=== PATIENT | female | born 1940 ===

== ENCOUNTER 2017-07-02 15:12 | Emergency (ER) | payer MEDICARE, OTHER ==
[~2017-07-02] VITALS: Ht 157.5 cm; Wt 51.3 kg
[~2017-07-02 15:12] MED LIST: ALBU90OI6 INH; ALPR.5 PO; CENTRUM SILVER1 EAC3 PO; CYAN1000I IM; DEXL60CA3 PO; DOCU100 PO; ERGO50000 PO; FURO20 PO; HYDACE5 PO; IPRA.06NI INH; MAGOXI400 PO; MORP15ER PO; MORP30 PO; MORP30ER PO; POTCHL20ER PO; PSEU120ER PO; VITAMIN D50000 UNIT PO; WARF6 PO; ZOMETA; ZOMETA 4 M4 MG/100 M IV
[2017-07-02] MEDS ORDERED: Macrobid 100 M100 MG PO (15:54)
[2017-07-02 15:58] LABS: Source, Urine Clean Catch
[2017-07-02 16:01] LABS: Bilirubin, Urine Neg (Neg); Blood, Urine 5+ (Neg); Glucose Qualitative, Urine Neg (Neg); Ketones, Urine 1+ (Neg); Leukocyte Esterase, Urine 3+ (Neg); Nitrite, Urine Pos (Neg); Protein, Urine 2+ (Neg); Specific Gravity, Urine 1.025 (1.003-1.022); Urobilinogen, Urine 1+ (Normal)
[2017-07-02] MEDS ORDERED: POTCHL20ER (16:14)
[2017-07-02] MEDS ORDERED: GABA300 (16:14)
[2017-07-02] MEDS ORDERED: [UNRECOGNIZED DRUG - SUPPLY] (16:14)
[2017-07-02] MEDS ORDERED: Prednisolone Ace5 ML (16:14)
[2017-07-02] MEDS ORDERED: Sulfamethoxazo1 EAC4 (16:14)
[2017-07-02] MEDS ORDERED: CEFD300 (16:14)
[2017-07-02] MEDS ORDERED: ONDA8 (16:14)
[2017-07-02] MEDS ORDERED: TRIM100 (16:14)
[2017-07-02 16:37] LABS: Appearance, Urine Hazy (Clear); Color, Urine Yellow (P-Yellow)
[2017-07-02 16:38] LABS: White Blood Cells, Urine TNTC /hpf (0-5)
[2017-07-02 16:39] LABS: Bacteria Many /hpf; Squamous Epithelial Cells Few /hpf (Few)
== END 2017-07-02 16:19 | disposition home or self-care (01) ==
LOC: ER 15:12
PROVIDERS: Internal Medicine
DX: R31.9 Hematuria, unspecified (principal); R79.1 Abnormal coagulation profile; Z79.01 Long term (current) use of anticoagulants; Z79.899 Other long term (current) drug therapy
CPT/HCPCS: 81001; 87077; 87086; 87186; 99283

== ENCOUNTER 2018-05-29 08:05 | Day surgery (SDC) | payer MEDICARE, OTHER ==
[~2018-05-29 08:05] MED LIST changes: +CEFD300; +GABA300; +Macrobid 100 M100 MG PO; +ONDA8; +POTCHL20ER; +Prednisolone Ace5 ML; +Sulfamethoxazo1 EAC4; +TRIM100; +[UNRECOGNIZED DRUG - SUPPLY]
== END 2018-05-29 08:14 | disposition home or self-care (01) ==
LOC: ATC 08:05
DX: I74.3 Embolism and thrombosis of arteries of the lower extremities (principal); Z79.01 Long term (current) use of anticoagulants; Z79.899 Other long term (current) drug therapy; Z86.73 Personal history of transient ischemic attack (TIA), and cerebral infarction without residual deficits; J45.909 Unspecified asthma, uncomplicated
CPT/HCPCS: 96372; J1650

== ENCOUNTER 2018-05-31 00:06 | Day surgery (SDC) | payer MEDICARE, OTHER | END 2018-05-31 16:37 | disposition home or self-care (01) | LOC: ATC 00:06 | DX: I74.3 Embolism and thrombosis of arteries of the lower extremities (principal) | CPT/HCPCS: 96372; J1650 ==

== ENCOUNTER 2018-06-01 00:05 | Day surgery (SDC) | payer MEDICARE, OTHER | END 2018-06-01 16:40 | disposition home or self-care (01) | LOC: ATC 00:05 | DX: I74.3 Embolism and thrombosis of arteries of the lower extremities (principal); Z79.01 Long term (current) use of anticoagulants; Z79.899 Other long term (current) drug therapy; Z86.73 Personal history of transient ischemic attack (TIA), and cerebral infarction without residual deficits | CPT/HCPCS: 96372; J1650 ==

== ENCOUNTER 2018-06-02 00:14 | Day surgery (SDC) | payer MEDICARE, OTHER ==
--- NOTE | 2018-06-02 11:41 | NUR ---
PT CAME IN THIS MORNING FOR LOVENOX INJECTION AND FINGERSTICK INR. PT INFORMS THIS RN THAT SHE IS NOT ON HER COUMADIN AT THIS TIME, STATING THAT SHE WAS TOLD TO TAKE THESE INJECTIONS UNTIL SHE "GETS UP TO HER LEVEL" ACCORDING TO PT PT STATES THAT HER PROCEDURE IS OVER, THIS RN INFORMED HER THAT ORDER STATES THAT SHE SHOULD OF STARTED COUMADIN ON 05/31/18. PT WAS INFORMED THIS AND ENCOURAGED TO CALL YOUR OFFICE FOR FURTHER INSTRUCTIONS SINCE FINGERSTICK INR IS 0.9 TODAY. THIS RN WILL FAX THIS N/N AND LAB RESULT TO DR REMY TODAY
== END 2018-06-02 16:49 | disposition home or self-care (01) ==
LOC: ATC 00:14
DX: I74.3 Embolism and thrombosis of arteries of the lower extremities (principal); J45.909 Unspecified asthma, uncomplicated
CPT/HCPCS: 36416; 85610; 96372; J1650

== ENCOUNTER 2018-06-03 00:16 | Day surgery (SDC) | payer MEDICARE, OTHER ==
--- NOTE | 2018-06-03 18:00 | NUR ---
AM: COMPUTERS DOWN SEE PAPER CHARTING FOR LOVENOX GIVEN AND VITALS
== END 2018-06-03 16:08 | disposition home or self-care (01) ==
LOC: ATC 00:16
DX: I74.3 Embolism and thrombosis of arteries of the lower extremities (principal)
CPT/HCPCS: 96372; J1650

== ENCOUNTER 2018-06-04 08:06 | Day surgery (SDC) | payer MEDICARE, OTHER ==
[2018-06-05] MEDS ORDERED: WARF5 PO (08:14)
[2018-06-05] MEDS ORDERED: ARED 2 BOTHEYES (16:35)
[2018-06-05] MEDS ORDERED: ONDA8 PO (16:36)
[2018-06-05] MEDS ORDERED: Hair, Skin & N1 EACH PO (16:36)
[2018-06-05] MEDS ORDERED: LIDO700A20 TOP (16:36)
[2018-06-05] MEDS ORDERED: DEXL60CA3 (16:37)
[2018-06-05] MEDS ORDERED: Atrovent Inha12.9 GM (16:38)
[2018-06-05] MEDS ORDERED: ERGO400 (16:39)
[2018-06-05] MEDS ORDERED: VIT B12 (16:42)
[2018-06-05] MEDS ORDERED: Reclast 55 MG/100 M IV (16:42)
[2018-06-05] MEDS ORDERED: MORP30 PO (16:43)
[2018-06-05] MEDS ORDERED: FURO20 PO (16:48)
[2018-06-05] MEDS ORDERED: ALPR.5 PO (16:49)
[2018-06-05] MEDS ORDERED: SUDAFED PO (16:50)
[2018-06-05] MEDS ORDERED: COLE5P PO (16:50)
[2018-06-05] MEDS ORDERED: Bentyl10 MG (16:51)
[2018-06-05] MEDS ORDERED: LOPE2C (16:51)
== END 2018-06-04 16:21 | disposition home or self-care (01) ==
LOC: ATC 08:06
DX: I74.3 Embolism and thrombosis of arteries of the lower extremities (principal); Z79.01 Long term (current) use of anticoagulants
CPT/HCPCS: 36416; 85610; 96372; J1650

== ENCOUNTER 2018-06-05 07:57 | Day surgery (SDC) | payer MEDICARE, OTHER ==
[2018-06-05] MEDS ORDERED: WARF5 PO (08:14)
[2018-06-05] MEDS ORDERED: ARED 2 BOTHEYES (16:35)
[2018-06-05] MEDS ORDERED: Hair, Skin & N1 EACH PO (16:36)
[2018-06-05] MEDS ORDERED: ONDA8 PO (16:36)
[2018-06-05] MEDS ORDERED: LIDO700A20 TOP (16:36)
[2018-06-05] MEDS ORDERED: DEXL60CA3 (16:37)
[2018-06-05] MEDS ORDERED: Atrovent Inha12.9 GM (16:38)
[2018-06-05] MEDS ORDERED: ERGO400 (16:39)
[2018-06-05] MEDS ORDERED: Reclast 55 MG/100 M IV (16:42)
[2018-06-05] MEDS ORDERED: VIT B12 (16:42)
[2018-06-05] MEDS ORDERED: MORP30 PO (16:43)
[2018-06-05] MEDS ORDERED: FURO20 PO (16:48)
[2018-06-05] MEDS ORDERED: ALPR.5 PO (16:49)
[2018-06-05] MEDS ORDERED: COLE5P PO (16:50)
[2018-06-05] MEDS ORDERED: SUDAFED PO (16:50)
[2018-06-05] MEDS ORDERED: LOPE2C (16:51)
[2018-06-05] MEDS ORDERED: Bentyl10 MG (16:51)
== END 2018-06-05 16:14 | disposition home or self-care (01) ==
LOC: ATC 07:57
DX: I74.3 Embolism and thrombosis of arteries of the lower extremities (principal); Z79.01 Long term (current) use of anticoagulants
CPT/HCPCS: 96372; J1650

== ENCOUNTER 2018-06-06 00:13 | Day surgery (SDC) | payer MEDICARE, OTHER ==
[~2018-06-06 00:13] MED LIST changes: +ARED 2 BOTHEYES; +Atrovent Inha12.9 GM; +Bentyl10 MG; +COLE5P PO; +DEXL60CA3; +ERGO400; +Hair, Skin & N1 EACH PO; +LIDO700A20 TOP; +LOPE2C; +ONDA8 PO; +Reclast 55 MG/100 M IV; +SUDAFED PO; +VIT B12; +WARF5 PO
--- NOTE | 2018-06-06 09:26 | NUR ---
FINGERSTICK INR = 1.4 TODAY.
--- NOTE | 2018-06-06 17:02 | NUR ---
INR RESULTS FROM TODAY FAXED TO DR. REMY'S OFFICE.
[2018-06-07] MEDS ORDERED: WARF6 PO (08:19)
[2018-06-07] MEDS ORDERED: ENOX60I SC (08:19)
== END 2018-06-06 22:37 | disposition home or self-care (01) ==
LOC: ATC 00:13
DX: I74.3 Embolism and thrombosis of arteries of the lower extremities (principal); J45.909 Unspecified asthma, uncomplicated
CPT/HCPCS: 36416; 85610; 96372; J1650

== ENCOUNTER 2018-06-07 00:19 | Day surgery (SDC) | payer MEDICARE, OTHER ==
[2018-06-07] MEDS ORDERED: WARF6 PO (08:19)
[2018-06-07] MEDS ORDERED: ENOX60I SC (08:19)
== END 2018-06-07 22:36 | disposition home or self-care (01) ==
LOC: ATC 00:19
DX: I74.3 Embolism and thrombosis of arteries of the lower extremities (principal)
CPT/HCPCS: 36416; 85610; 96372; J1650

== ENCOUNTER 2018-06-08 00:14 | Day surgery (SDC) | payer MEDICARE, OTHER ==
[~2018-06-08 00:14] MED LIST changes: +ENOX60I SC
--- NOTE | 2018-06-08 08:21 | NUR ---
INR 1.9.
== END 2018-06-08 16:10 | disposition home or self-care (01) ==
LOC: ATC 00:14
DX: I74.3 Embolism and thrombosis of arteries of the lower extremities (principal)
CPT/HCPCS: 36416; 85610; 96372; J1650

== ENCOUNTER 2018-06-09 07:29 | Day surgery (SDC) | payer MEDICARE, OTHER ==
--- NOTE | 2018-06-09 08:49 | NUR ---
INR 2.0 NO MEDICATION GIVEN PER DR ORDERS. WILL FAX RESULT OF PT NOTE TO DR REMY. PT CONTINUING ON COUMADIN, VERBALIZES UNDERSTANDING OF MEDICATION.
== END 2018-06-09 08:35 | disposition home or self-care (01) ==
LOC: ATC 07:29
DX: I74.3 Embolism and thrombosis of arteries of the lower extremities (principal); Z79.899 Other long term (current) drug therapy; Z79.01 Long term (current) use of anticoagulants
CPT/HCPCS: 36416; 85610; 99211; J1650

== ENCOUNTER 2018-10-03 12:47 | Inpatient (IN) | payer MEDICARE, OTHER ==
[~2018-10-03] VITALS: Ht 157.5 cm; Wt 49.6 kg
[~2018-10-03 12:47] MED LIST changes: -ARED 2 BOTHEYES; -DEXL60CA3; -ERGO400; -POTCHL20ER; -Reclast 55 MG/100 M IV; -SUDAFED PO; -VIT B12; +VITAMIN D250000 UNIT PO
[2018-10-03 13:15] LABS: Source, Urine Catheter
[2018-10-03 13:24] LABS: BASOPHILS ABSOLUTE AUTO 0.01 K/mm3 (0.00-0.23); BASOPHILS PERCENT AUTO 0 % (0-2); EOSINOPHILS PERCENT AUTO 0 % (0-6); Hematocrit 40.2 % (33.0-51.0); Hemoglobin 12.7 g/dL (11.5-16.0); IMMATURE GRAN ABSOLUTE AUTO 0.01 K/mm3 (0.00-0.10); IMMATURE GRAN PERCENT AUTO 0 % (0-1); LYMPHOCYTES ABSOLUTE AUTO 0.43 K/mm3 (0.84-5.20); LYMPHOCYTES PERCENT AUTO 8 % (21-46); MONOCYTES ABSOLUTE AUTO 0.26 K/mm3 (0.16-1.47); MONOCYTES PERCENT AUTO 5 % (4-13); Mean Corpuscular HGB 28.2 pg (26.0-34.0); Mean Corpuscular HGB Conc 31.6 g/dL (31.5-36.5); Mean Corpuscular Volume 89 fL (80-100); Mean Platelet Volume 10.5 fL (9.1-12.4); NEUTROPHILS ABSOLUTE AUTO 4.91 K/mm3 (1.96-9.15); NEUTROPHILS PERCENT AUTO 87 % (41-73); Platelet Count 150 K/mm3 (150-400); RDW Coefficient Variation 14.7 % (11.7-14.2); RDW Standard Deviation 48.3 fL (35.1-46.3); White Blood Cell Count 5.62 K/mm3 (4.00-11.30)
[2018-10-03 13:41] LABS: International Normalized Ratio 1.75; Prothrombin Time Results 17.6 Sec (9.7-11.5)
[2018-10-03 13:53] LABS: Bilirubin, Urine Neg (Neg); Blood, Urine 1+ (Neg); Glucose Qualitative, Urine Neg (Neg); Ketones, Urine 1+ (Neg); Leukocyte Esterase, Urine Neg (Neg); Nitrite, Urine Pos (Neg); Protein, Urine Neg (Neg); Specific Gravity, Urine 1.015 (1.003-1.022); Urobilinogen, Urine NORM (Normal)
[2018-10-03 14:05] LABS: Appearance, Urine Hazy (Clear); Color, Urine Pale Yellow (P-Yellow)
[2018-10-03 14:07] LABS: Red Blood Cells, Urine 0-2 /hpf (0-2); Squamous Epithelial Cells Not Seen /hpf (Few); White Blood Cells, Urine 0-2 /hpf (0-5)
[2018-10-03 14:08] LABS: Bacteria Rare /hpf
[2018-10-03 14:17] LABS: Alanine Aminotransfer (ALT/SGP 20 U/L (12-78); Albumin, Blood 3.2 g/dL (3.4-5.0); Alk Phos 90 U/L (50-136); Anion Gap 7 mmol/L (6-16); Aspartate Aminotrans (AST/SGOT 29 U/L (12-37); Bilirubin, Total 0.5 mg/dL (0.1-1.0); Blood Urea Nitrogen 11 mg/dL (8-24); Bun/Creatinine Ratio 18.3 (12.0-20.0); CO2, Blood 29 mmol/L (21-32); Calcium, Blood 8.1 mg/dL (8.5-10.1); Chloride, Blood 103 mmol/L (98-108); Globulin, Blood 3.3 g/dL (2.2-4.0); Glomerular Filtration Rate >60 (60-); Glucose, Blood 125 mg/dL (70-99); Potassium, Blood 3.3 mmol/L (3.5-5.5); Sodium, Blood 139 mmol/L (136-145); Total Protein, Blood 6.5 g/dL (6.4-8.2)
[2018-10-03] MEDS ORDERED: Pseudoephedrine30 MG PO (15:20)
[2018-10-03] MEDS ORDERED: PRESERVISION A1 EACH PO (16:06)
[2018-10-03] MEDS ORDERED: ZOLEDRONIC4 MG/1001 PO (16:08)
[2018-10-03 21:21] LABS: Adenovirus Not Detected (NOT DETECT); Bordetella pertussis Not Detected (NOT DETECT); Chlamydophila pneumoniae Not Detected (NOT DETECT); Coronavirus 229E Not Detected (NOT DETECT); Coronavirus HKU1 Not Detected (NOT DETECT); Coronavirus NL63 Not Detected (NOT DETECT); Coronavirus OC43 Not Detected (NOT DETECT); Human Metapneumovirus Not Detected (NOT DETECT); Human Rhinovirus/Enterovirus Not Detected (NOT DETECT); Influenza A Not Detected (NOT DETECT); Influenza A/2009-H1 Not Detected (NOT DETECT); Influenza A/H1 Not Detected (NOT DETECT); Influenza A/H3 Not Detected (NOT DETECT); Influenza B Not Detected (NOT DETECT); Mycoplasma pneumoniae Not Detected (NOT DETECT); Parainfluenza Virus 1 Not Detected (NOT DETECT); Parainfluenza Virus 2 Not Detected (NOT DETECT); Parainfluenza Virus 3 Not Detected (NOT DETECT); Parainfluenza Virus 4 Not Detected (NOT DETECT); Respiratory Syncytial Virus Not Detected (NOT DETECT)
[2018-10-04 00:40] LABS: Adenovirus F 40/41 Not Detected (NOT DETECT); Astrovirus Not Detected (NOT DETECT); Campylobacter Sp Not Detected (NOT DETECT); Cryptosporidium Not Detected (NOT DETECT); Cyclospora Cayetanensis Not Detected (NOT DETECT); E. Coli O157 Not Detected (NOT DETECT); Entamoeba Histolytica Not Detected (NOT DETECT); Enteroaggregative E. coli-EAEC Not Detected (NOT DETECT); Enteropathogenic E. coli-EPEC Not Detected (NOT DETECT); Enterotoxigenic E. coli-ETEC Not Detected (NOT DETECT); Giardia Lamblia Not Detected (NOT DETECT); Norovirus GI/GII Not Detected (NOT DETECT); Plesiomonas Shigelloides Not Detected (NOT DETECT); Rotavirus A Not Detected (NOT DETECT); Salmonella Sp Not Detected (NOT DETECT); Sapovirus Not Detected (NOT DETECT); Shiga Toxin-prod E. coli-STEC Not Detected (NOT DETECT); Shigella/Enteroin E. coli-EIEC Not Detected (NOT DETECT); Vibrio Cholerae Not Detected (NOT DETECT); Vibrio Sp Not Detected (NOT DETECT); Yersinia Enterocolitica Not Detected (NOT DETECT)
[2018-10-04 05:08] LABS: BASOPHILS ABSOLUTE AUTO 0.01 K/mm3 (0.00-0.23); BASOPHILS PERCENT AUTO 0 % (0-2); EOSINOPHILS PERCENT AUTO 0 % (0-6); Hematocrit 35.1 % (33.0-51.0); Hemoglobin 10.9 g/dL (11.5-16.0); IMMATURE GRAN ABSOLUTE AUTO 0.06 K/mm3 (0.00-0.10); IMMATURE GRAN PERCENT AUTO 1 % (0-1); LYMPHOCYTES ABSOLUTE AUTO 0.93 K/mm3 (0.84-5.20); LYMPHOCYTES PERCENT AUTO 10 % (21-46); MONOCYTES ABSOLUTE AUTO 0.77 K/mm3 (0.16-1.47); MONOCYTES PERCENT AUTO 9 % (4-13); Mean Corpuscular HGB 27.9 pg (26.0-34.0); Mean Corpuscular HGB Conc 31.1 g/dL (31.5-36.5); Mean Corpuscular Volume 90 fL (80-100); Mean Platelet Volume 11.4 fL (9.1-12.4); NEUTROPHILS ABSOLUTE AUTO 7.18 K/mm3 (1.96-9.15); NEUTROPHILS PERCENT AUTO 80 % (41-73); Platelet Count 124 K/mm3 (150-400); RDW Coefficient Variation 15.2 % (11.7-14.2); RDW Standard Deviation 49.6 fL (35.1-46.3); White Blood Cell Count 8.95 K/mm3 (4.00-11.30)
[2018-10-04 05:20] LABS: Prothrombin Time Results 19.9 Sec (9.7-11.5)
[2018-10-04 05:44] LABS: Alanine Aminotransfer (ALT/SGP 16 U/L (12-78); Albumin, Blood 2.3 g/dL (3.4-5.0); Albumin/Globulin Ratio 0.8 (0.8-1.8); Alk Phos 59 U/L (50-136); Anion Gap 4 mmol/L (6-16); Aspartate Aminotrans (AST/SGOT 27 U/L (12-37); Bilirubin, Total 0.6 mg/dL (0.1-1.0); Blood Urea Nitrogen 10 mg/dL (8-24); Bun/Creatinine Ratio 19.8 (12.0-20.0); CO2, Blood 29 mmol/L (21-32); Calcium, Blood 7.8 mg/dL (8.5-10.1); Chloride, Blood 107 mmol/L (98-108); Glomerular Filtration Rate >60 (60-); Glucose, Blood 113 mg/dL (70-99); Potassium, Blood 3.7 mmol/L (3.5-5.5); Sodium, Blood 140 mmol/L (136-145); Total Protein, Blood 5.3 g/dL (6.4-8.2)
--- NOTE | 2018-10-04 17:49 | NUR ---
PATIENT IS ALERT AND ORIENTED AND PLEASANT WITH STAFF AND COOPERATIVE WITH ALL CARES. SHE CONTNUES TO HAVE PAIN TO HER HIP AND IS MEDICATED PER EMAR. CDIFF RULED OUT AND NO DIARRHEA THIS SHIFT. NO ACUTE CHANGES THIS SHIFT.
[2018-10-05 04:44] LABS: BASOPHILS PERCENT AUTO 0 % (0-2); EOSINOPHILS ABSOLUTE AUTO 0.02 K/mm3 (0.00-0.68); EOSINOPHILS PERCENT AUTO 0 % (0-6); Hematocrit 31.6 % (33.0-51.0); IMMATURE GRAN ABSOLUTE AUTO 0.03 K/mm3 (0.00-0.10); IMMATURE GRAN PERCENT AUTO 1 % (0-1); LYMPHOCYTES ABSOLUTE AUTO 0.77 K/mm3 (0.84-5.20); LYMPHOCYTES PERCENT AUTO 15 % (21-46); MONOCYTES PERCENT AUTO 8 % (4-13); Mean Corpuscular HGB 28.1 pg (26.0-34.0); Mean Corpuscular HGB Conc 31.6 g/dL (31.5-36.5); Mean Corpuscular Volume 89 fL (80-100); Mean Platelet Volume 10.9 fL (9.1-12.4); NEUTROPHILS ABSOLUTE AUTO 3.84 K/mm3 (1.96-9.15); NEUTROPHILS PERCENT AUTO 76 % (41-73); Platelet Count 117 K/mm3 (150-400); RDW Coefficient Variation 14.9 % (11.7-14.2); RDW Standard Deviation 48.7 fL (35.1-46.3); Red Blood Cell Count 3.56 M/mm3 (3.80-5.20); White Blood Cell Count 5.06 K/mm3 (4.00-11.30)
[2018-10-05 04:56] LABS: International Normalized Ratio 2.18; Prothrombin Time Results 21.5 Sec (9.7-11.5)
[2018-10-05 04:58] LABS: Anion Gap 4 mmol/L (6-16); Blood Urea Nitrogen 7 mg/dL (8-24); Bun/Creatinine Ratio 14.2 (12.0-20.0); CO2, Blood 29 mmol/L (21-32); Calcium, Blood 7.8 mg/dL (8.5-10.1); Chloride, Blood 109 mmol/L (98-108); Creatinine, Blood 0.49 mg/dL (0.40-1.00); Glomerular Filtration Rate >60 (60-); Glucose, Blood 91 mg/dL (70-99); Potassium, Blood 3.2 mmol/L (3.5-5.5); Sodium, Blood 142 mmol/L (136-145)
--- NOTE | 2018-10-05 05:20 | NUR ---
HUMAN RESOURCE PROFESSIONAL SUMMARY NO ACUTE CHANGES THIS SHIFT. PT AAOX4 AND PLEASANT. TREATED FOR CHRONIC HIP PAIN WITH SCHEDULED PO MORPHINE. PT DENIES SOB, N/V. ON LR'S AT 100 ML/HR. VITALS STABLE. PT EAGER TO GO HOME. WILL CONTINUE TO MONITOR.
[2018-10-05] MEDS ORDERED: ACET325 PO (11:46)
[2018-10-05] MEDS ORDERED: ALBU90OI INH (11:47)
[2018-10-05] MEDS ORDERED: AZIT500 PO (11:48)
[2018-10-05] MEDS ORDERED: CEFP200 PO (11:48)
[2018-10-05] MEDS ORDERED: Florastor250 MG PO (11:49)
[2018-10-05] MEDS ORDERED: ONDA4ODT MM (11:49)
--- NOTE | 2018-10-05 12:38 | NUR ---
1200 PATIENT DISCHARGED TO HOME. IV'S REMOVED, NO SS OF INFECTION NOTED. MEDS FAXED INTO PHARMACY OF CHOICE AND NURSE WENT OVER DISCHARGE INSTRUCTIONS WITH PATIENT AND DAUGHTER. NEW MEDS WERE DISCUSSED AND PATIENT EDUCATED REGARDING THEM. PATIENT AND DAUGHTER GATHERED BELONGINGS. PATIENT WHEELED DOWN TO CAR AND TAKEN HOME BY DAUGHTER.
--- NOTE | 2018-10-05 16:18 | NUR ---
Pt. is doing much bettwer encouraged pt. and offered prayrs and spiritual support.
== END 2018-10-05 12:27 | disposition home or self-care (01) | DRG 871 ==
LOC: ER 12:47 → MEDS 15:30 → ENPENDDIS 10-05 11:10 → MEDS 10-05 12:27
PROVIDERS: Emergency Medicine; ADMIT Family Medicine
DX: A41.51 Sepsis due to Escherichia coli [E. coli] (principal); J18.9 Pneumonia, unspecified organism; R65.21 Severe sepsis with septic shock; N39.0 Urinary tract infection, site not specified; E87.6 Hypokalemia; M19.90 Unspecified osteoarthritis, unspecified site; M81.0 Age-related osteoporosis without current pathological fracture; R19.7 Diarrhea, unspecified; Z88.6 Allergy status to analgesic agent; Z88.8 Allergy status to other drugs, medicaments and biological substances; Z86.718 Personal history of other venous thrombosis and embolism; Z79.01 Long term (current) use of anticoagulants; Z85.42 Personal history of malignant neoplasm of other parts of uterus; Z85.830 Personal history of malignant neoplasm of bone; Z79.899 Other long term (current) drug therapy
CPT/HCPCS: 36415; 36416; 71045; 71046; 80048; 80053; 81001; 83605; 84145; 85025; 85610; 85730; 87040; 87077; 87086; 87186; 87449; 87486; 87507; 87581; 87633; 87798; 93005; 93010; 94640; 94760; 94762; 96361; 96365; 96375; 97161; 97165; 97530; 97535; 99285-25; A9270; J0456; J0696; J2405; J7050; J7120; P9612

== ENCOUNTER 2018-10-23 08:49 | Day surgery (SDC) | payer MEDICARE, OTHER ==
[~2018-10-23 08:49] MED LIST changes: +ACET325 PO; +ALBU90OI INH; +AZIT500 PO; +CEFP200 PO; +Florastor250 MG PO; +ONDA4ODT MM; +PRESERVISION A1 EACH PO; +Pseudoephedrine30 MG PO; +ZOLEDRONIC4 MG/1001 PO
--- NOTE | 2018-10-23 09:15 | NUR ---
NO INR ORDERED. PT OFF COUMDAIN SINCE 10/20/18, PLANNED PROCEDURE ON 10/28/18. BRIDGING WITH LOVENOX BID PER MD ORDER. PT TO RETURN TONIGHT AT 1730.
== END 2018-10-23 17:35 | disposition home or self-care (01) ==
LOC: ATC 08:49
DX: J90 Pleural effusion, not elsewhere classified (principal); I74.3 Embolism and thrombosis of arteries of the lower extremities; J45.909 Unspecified asthma, uncomplicated; K21.9 Gastro-esophageal reflux disease without esophagitis; F41.1 Generalized anxiety disorder; E55.9 Vitamin D deficiency, unspecified; Z88.8 Allergy status to other drugs, medicaments and biological substances; Z88.6 Allergy status to analgesic agent; Z88.1 Allergy status to other antibiotic agents; Z79.899 Other long term (current) drug therapy; Z79.01 Long term (current) use of anticoagulants
CPT/HCPCS: 96372; J1650

== ENCOUNTER 2018-10-24 07:34 | Day surgery (SDC) | payer MEDICARE, OTHER | END 2018-10-24 16:20 | disposition home or self-care (01) | LOC: ATC 07:34 | DX: J90 Pleural effusion, not elsewhere classified (principal); I74.3 Embolism and thrombosis of arteries of the lower extremities; K21.9 Gastro-esophageal reflux disease without esophagitis; F41.1 Generalized anxiety disorder; E55.9 Vitamin D deficiency, unspecified; Z88.8 Allergy status to other drugs, medicaments and biological substances; Z88.6 Allergy status to analgesic agent; Z88.1 Allergy status to other antibiotic agents; Z79.899 Other long term (current) drug therapy; Z79.01 Long term (current) use of anticoagulants; Z86.73 Personal history of transient ischemic attack (TIA), and cerebral infarction without residual deficits | CPT/HCPCS: 96372; J1650 ==

== ENCOUNTER 2018-10-25 00:09 | Day surgery (SDC) | payer MEDICARE, OTHER ==
[2018-10-26] MEDS ORDERED: ENOX40I SC (07:58)
== END 2018-10-25 16:34 | disposition home or self-care (01) ==
LOC: ATC 00:09
DX: J90 Pleural effusion, not elsewhere classified (principal); I74.3 Embolism and thrombosis of arteries of the lower extremities; K21.9 Gastro-esophageal reflux disease without esophagitis; F41.1 Generalized anxiety disorder; J45.909 Unspecified asthma, uncomplicated; Z88.6 Allergy status to analgesic agent; Z88.1 Allergy status to other antibiotic agents; Z88.8 Allergy status to other drugs, medicaments and biological substances; Z79.899 Other long term (current) drug therapy; Z79.01 Long term (current) use of anticoagulants; Z86.718 Personal history of other venous thrombosis and embolism; Z86.73 Personal history of transient ischemic attack (TIA), and cerebral infarction without residual deficits
CPT/HCPCS: 96372; J1650

== ENCOUNTER 2018-10-26 00:03 | Day surgery (SDC) | payer MEDICARE, OTHER ==
[2018-10-26] MEDS ORDERED: ENOX40I SC (07:58)
== END 2018-10-26 16:40 | disposition home or self-care (01) ==
LOC: ATC 00:03
DX: J90 Pleural effusion, not elsewhere classified (principal); I74.3 Embolism and thrombosis of arteries of the lower extremities; J45.909 Unspecified asthma, uncomplicated; K21.9 Gastro-esophageal reflux disease without esophagitis; F41.1 Generalized anxiety disorder; Z88.8 Allergy status to other drugs, medicaments and biological substances; Z88.6 Allergy status to analgesic agent; Z88.1 Allergy status to other antibiotic agents; Z79.899 Other long term (current) drug therapy; Z79.01 Long term (current) use of anticoagulants
CPT/HCPCS: 96372; J1650

== ENCOUNTER 2018-10-27 07:32 | Day surgery (SDC) | payer MEDICARE, OTHER ==
[~2018-10-27 07:32] MED LIST changes: +ENOX40I SC
== END 2018-10-27 08:11 | disposition home or self-care (01) ==
LOC: ATC 07:32
DX: J91.8 Pleural effusion in other conditions classified elsewhere (principal); J90 Pleural effusion, not elsewhere classified; C79.51 Secondary malignant neoplasm of bone; J45.909 Unspecified asthma, uncomplicated; I34.0 Nonrheumatic mitral (valve) insufficiency; E55.9 Vitamin D deficiency, unspecified; E53.8 Deficiency of other specified B group vitamins; D72.819 Decreased white blood cell count, unspecified; K21.9 Gastro-esophageal reflux disease without esophagitis; F41.9 Anxiety disorder, unspecified; K64.8 Other hemorrhoids; M16.12 Unilateral primary osteoarthritis, left hip; M75.81 Other shoulder lesions, right shoulder; M70.62 Trochanteric bursitis, left hip; Z79.01 Long term (current) use of anticoagulants; Z86.010 Personal history of colon polyps; Z85.42 Personal history of malignant neoplasm of other parts of uterus; Z85.72 Personal history of non-Hodgkin lymphomas; Z79.899 Other long term (current) drug therapy; Z87.440 Personal history of urinary (tract) infections; Z86.718 Personal history of other venous thrombosis and embolism; Z79.891 Long term (current) use of opiate analgesic; Z86.73 Personal history of transient ischemic attack (TIA), and cerebral infarction without residual deficits
CPT/HCPCS: 96372; J1650

== ENCOUNTER 2018-10-28 13:25 | Day surgery (SDC) | payer MEDICARE, OTHER | END 2018-10-29 01:58 | disposition home or self-care (01) | LOC: US 13:25 | DX: J90 Pleural effusion, not elsewhere classified (principal); K76.89 Other specified diseases of liver; D73.89 Other diseases of spleen; I74.3 Embolism and thrombosis of arteries of the lower extremities | CPT/HCPCS: 36415; 71260; 74177; 76604; 82947; 83615; 84155; 85025; 85610; Q9967 ==

== ENCOUNTER 2018-10-29 00:27 | Day surgery (SDC) | payer MEDICARE, OTHER | END 2018-10-29 16:09 | disposition home or self-care (01) | LOC: ATC 00:27 | DX: I74.3 Embolism and thrombosis of arteries of the lower extremities (principal); J90 Pleural effusion, not elsewhere classified; J45.909 Unspecified asthma, uncomplicated; Z88.6 Allergy status to analgesic agent; Z88.1 Allergy status to other antibiotic agents; Z88.8 Allergy status to other drugs, medicaments and biological substances; Z79.899 Other long term (current) drug therapy; Z79.01 Long term (current) use of anticoagulants; Z86.73 Personal history of transient ischemic attack (TIA), and cerebral infarction without residual deficits | CPT/HCPCS: 96372; J1650 ==

== ENCOUNTER 2018-10-30 07:42 | Day surgery (SDC) | payer MEDICARE, OTHER ==
--- NOTE | 2018-10-30 08:37 | NUR ---
FINGERSTICK INR TODAY: RESULTS ARE 1.0
== END 2018-10-30 16:32 | disposition home or self-care (01) ==
LOC: ATC 07:42
DX: J90 Pleural effusion, not elsewhere classified (principal); I74.3 Embolism and thrombosis of arteries of the lower extremities; J45.909 Unspecified asthma, uncomplicated; K21.9 Gastro-esophageal reflux disease without esophagitis; F41.1 Generalized anxiety disorder; Z88.8 Allergy status to other drugs, medicaments and biological substances; Z88.6 Allergy status to analgesic agent; Z88.1 Allergy status to other antibiotic agents; Z79.899 Other long term (current) drug therapy; Z79.01 Long term (current) use of anticoagulants; Z86.73 Personal history of transient ischemic attack (TIA), and cerebral infarction without residual deficits
CPT/HCPCS: 36416; 85610; 96372; J1650

== ENCOUNTER 2018-10-31 07:24 | Day surgery (SDC) | payer MEDICARE, OTHER ==
--- NOTE | 2018-10-31 08:19 | NUR ---
UNABLE TO DO INR THIS AM D/T MALFUNCTION OF MACHINE.
== END 2018-10-31 16:43 | disposition home or self-care (01) ==
LOC: ATC 07:24
DX: J90 Pleural effusion, not elsewhere classified (principal); I74.3 Embolism and thrombosis of arteries of the lower extremities; J45.909 Unspecified asthma, uncomplicated; K21.9 Gastro-esophageal reflux disease without esophagitis; F41.1 Generalized anxiety disorder; Z88.8 Allergy status to other drugs, medicaments and biological substances; Z88.6 Allergy status to analgesic agent; Z88.1 Allergy status to other antibiotic agents; Z79.899 Other long term (current) drug therapy; Z79.01 Long term (current) use of anticoagulants
CPT/HCPCS: 96372; J1650

== ENCOUNTER 2018-11-01 00:36 | Day surgery (SDC) | payer MEDICARE, OTHER | END 2018-11-01 16:38 | disposition home or self-care (01) | LOC: ATC 00:36 | DX: J90 Pleural effusion, not elsewhere classified (principal); I74.3 Embolism and thrombosis of arteries of the lower extremities; J45.909 Unspecified asthma, uncomplicated; K21.9 Gastro-esophageal reflux disease without esophagitis; Z79.01 Long term (current) use of anticoagulants; Z79.899 Other long term (current) drug therapy; Z88.8 Allergy status to other drugs, medicaments and biological substances; Z88.6 Allergy status to analgesic agent; Z88.1 Allergy status to other antibiotic agents; Z86.73 Personal history of transient ischemic attack (TIA), and cerebral infarction without residual deficits | CPT/HCPCS: 36416; 85610; 96372; J1650 ==

== ENCOUNTER 2018-11-02 00:09 | Day surgery (SDC) | payer MEDICARE, OTHER ==
[~2018-11-02] VITALS: Ht 157.5 cm; Wt 49.0 kg
--- NOTE | 2018-11-02 08:02 | NUR ---
INR 1.3.
== END 2018-11-02 16:37 | disposition home or self-care (01) ==
LOC: ATC 00:09
DX: J90 Pleural effusion, not elsewhere classified (principal); I74.3 Embolism and thrombosis of arteries of the lower extremities; J45.909 Unspecified asthma, uncomplicated; K21.9 Gastro-esophageal reflux disease without esophagitis; E55.9 Vitamin D deficiency, unspecified; Z79.01 Long term (current) use of anticoagulants; Z79.899 Other long term (current) drug therapy; Z88.8 Allergy status to other drugs, medicaments and biological substances; Z88.6 Allergy status to analgesic agent; Z88.1 Allergy status to other antibiotic agents
CPT/HCPCS: 36416; 85610; 96372; J1650

== ENCOUNTER 2018-11-03 00:17 | Day surgery (SDC) | payer MEDICARE, OTHER | END 2018-11-03 16:45 | disposition home or self-care (01) | LOC: ATC 00:17 | DX: J91.8 Pleural effusion in other conditions classified elsewhere (principal); J90 Pleural effusion, not elsewhere classified; I74.3 Embolism and thrombosis of arteries of the lower extremities; J45.909 Unspecified asthma, uncomplicated; I34.0 Nonrheumatic mitral (valve) insufficiency; E53.8 Deficiency of other specified B group vitamins; D72.819 Decreased white blood cell count, unspecified; C82.90 Follicular lymphoma, unspecified, unspecified site; K52.9 Noninfective gastroenteritis and colitis, unspecified; K21.9 Gastro-esophageal reflux disease without esophagitis; F41.9 Anxiety disorder, unspecified; K64.8 Other hemorrhoids; M81.0 Age-related osteoporosis without current pathological fracture; Z86.718 Personal history of other venous thrombosis and embolism; Z85.42 Personal history of malignant neoplasm of other parts of uterus; M70.62 Trochanteric bursitis, left hip; Z87.11 Personal history of peptic ulcer disease; Z79.01 Long term (current) use of anticoagulants; Z86.010 Personal history of colon polyps; Z86.73 Personal history of transient ischemic attack (TIA), and cerebral infarction without residual deficits | CPT/HCPCS: 36416; 85610; 96372; J1650 ==

== ENCOUNTER 2018-11-04 00:41 | Day surgery (SDC) | payer MEDICARE, OTHER | END 2018-11-04 17:35 | disposition home or self-care (01) | LOC: ATC 00:41 | DX: J90 Pleural effusion, not elsewhere classified (principal); I74.3 Embolism and thrombosis of arteries of the lower extremities; J45.909 Unspecified asthma, uncomplicated; K21.9 Gastro-esophageal reflux disease without esophagitis; F41.1 Generalized anxiety disorder; Z88.8 Allergy status to other drugs, medicaments and biological substances; Z86.718 Personal history of other venous thrombosis and embolism; Z86.73 Personal history of transient ischemic attack (TIA), and cerebral infarction without residual deficits; Z88.6 Allergy status to analgesic agent; Z88.1 Allergy status to other antibiotic agents; Z79.899 Other long term (current) drug therapy; Z79.01 Long term (current) use of anticoagulants | CPT/HCPCS: 36416; 85610; 96372; J1650 ==

== ENCOUNTER 2018-11-05 08:00 | Day surgery (SDC) | payer MEDICARE, OTHER | END 2018-11-05 16:32 | disposition home or self-care (01) | LOC: ATC 08:00 | DX: J90 Pleural effusion, not elsewhere classified (principal); K31.89 Other diseases of stomach and duodenum; I74.2 Embolism and thrombosis of arteries of the upper extremities; C79.51 Secondary malignant neoplasm of bone; R91.8 Other nonspecific abnormal finding of lung field; J45.909 Unspecified asthma, uncomplicated; I34.0 Nonrheumatic mitral (valve) insufficiency; G89.3 Neoplasm related pain (acute) (chronic); E53.8 Deficiency of other specified B group vitamins; E55.9 Vitamin D deficiency, unspecified; C82.94 Follicular lymphoma, unspecified, lymph nodes of axilla and upper limb; K21.9 Gastro-esophageal reflux disease without esophagitis; R09.82 Postnasal drip; F41.9 Anxiety disorder, unspecified; K64.8 Other hemorrhoids; M81.0 Age-related osteoporosis without current pathological fracture; M16.12 Unilateral primary osteoarthritis, left hip; M70.62 Trochanteric bursitis, left hip; Z92.3 Personal history of irradiation; Z86.73 Personal history of transient ischemic attack (TIA), and cerebral infarction without residual deficits; Z85.42 Personal history of malignant neoplasm of other parts of uterus; Z79.891 Long term (current) use of opiate analgesic; Z79.01 Long term (current) use of anticoagulants; Z79.899 Other long term (current) drug therapy; Z88.8 Allergy status to other drugs, medicaments and biological substances; Z88.6 Allergy status to analgesic agent; Z88.1 Allergy status to other antibiotic agents | CPT/HCPCS: 96372; J1650 ==

== ENCOUNTER 2018-11-06 08:01 | Day surgery (SDC) | payer MEDICARE, OTHER | END 2018-11-06 16:35 | disposition home or self-care (01) | LOC: ATC 08:01 | DX: J90 Pleural effusion, not elsewhere classified (principal); I74.3 Embolism and thrombosis of arteries of the lower extremities; C79.51 Secondary malignant neoplasm of bone; J45.909 Unspecified asthma, uncomplicated; I34.0 Nonrheumatic mitral (valve) insufficiency; E53.8 Deficiency of other specified B group vitamins; E55.9 Vitamin D deficiency, unspecified; K21.9 Gastro-esophageal reflux disease without esophagitis; M81.0 Age-related osteoporosis without current pathological fracture; Z86.73 Personal history of transient ischemic attack (TIA), and cerebral infarction without residual deficits; Z85.42 Personal history of malignant neoplasm of other parts of uterus; Z79.891 Long term (current) use of opiate analgesic; Z79.01 Long term (current) use of anticoagulants; Z79.899 Other long term (current) drug therapy | CPT/HCPCS: 96372; J1650 ==

== ENCOUNTER 2018-11-07 00:37 | Day surgery (SDC) | payer MEDICARE, OTHER | END 2018-11-07 08:01 | disposition home or self-care (01) | LOC: ATC 00:37 | DX: J90 Pleural effusion, not elsewhere classified (principal); I74.3 Embolism and thrombosis of arteries of the lower extremities; Z85.72 Personal history of non-Hodgkin lymphomas; Z85.42 Personal history of malignant neoplasm of other parts of uterus; Z79.899 Other long term (current) drug therapy; Z79.01 Long term (current) use of anticoagulants; Z88.8 Allergy status to other drugs, medicaments and biological substances; Z88.6 Allergy status to analgesic agent | CPT/HCPCS: 96372; J1650 ==

== ENCOUNTER 2018-11-09 00:04 | Day surgery (SDC) | payer MEDICARE, OTHER | END 2018-11-09 16:40 | disposition home or self-care (01) | LOC: ATC 00:04 | DX: J90 Pleural effusion, not elsewhere classified (principal); I74.3 Embolism and thrombosis of arteries of the lower extremities; C79.51 Secondary malignant neoplasm of bone; J45.909 Unspecified asthma, uncomplicated; E55.9 Vitamin D deficiency, unspecified; D72.819 Decreased white blood cell count, unspecified; K21.9 Gastro-esophageal reflux disease without esophagitis; F41.9 Anxiety disorder, unspecified; Z88.8 Allergy status to other drugs, medicaments and biological substances; Z79.01 Long term (current) use of anticoagulants; Z79.891 Long term (current) use of opiate analgesic; Z85.42 Personal history of malignant neoplasm of other parts of uterus; Z79.899 Other long term (current) drug therapy | CPT/HCPCS: 96372; J1650 ==

== ENCOUNTER 2018-11-10 00:03 | Day surgery (SDC) | payer MEDICARE, OTHER ==
--- NOTE | 2018-11-10 08:11 | NUR ---
FINGERSTICK INR = 1.0 TODAY.
== END 2018-11-10 16:45 | disposition home or self-care (01) ==
LOC: ATC 00:03
DX: J90 Pleural effusion, not elsewhere classified (principal); G89.29 Other chronic pain; M25.552 Pain in left hip; C79.51 Secondary malignant neoplasm of bone; J45.909 Unspecified asthma, uncomplicated; E55.9 Vitamin D deficiency, unspecified; K21.9 Gastro-esophageal reflux disease without esophagitis; F41.9 Anxiety disorder, unspecified; Z79.899 Other long term (current) drug therapy; Z85.42 Personal history of malignant neoplasm of other parts of uterus; Z79.01 Long term (current) use of anticoagulants; Z79.891 Long term (current) use of opiate analgesic; Z88.8 Allergy status to other drugs, medicaments and biological substances
CPT/HCPCS: 36416; 85610; 96372; J1650

== ENCOUNTER 2018-11-11 00:50 | Day surgery (SDC) | payer MEDICARE, OTHER ==
[~2018-11-11 00:50] MED LIST changes: -CEPH250A PO
--- NOTE | 2018-11-11 08:01 | NUR ---
FINGERSTICK INR 1.1 MEDICATION GIVEN PER ORDERS
== END 2018-11-11 23:26 | disposition home or self-care (01) ==
LOC: ATC 00:50
DX: J90 Pleural effusion, not elsewhere classified (principal); I74.3 Embolism and thrombosis of arteries of the lower extremities; C79.51 Secondary malignant neoplasm of bone; Z79.899 Other long term (current) drug therapy; Z85.42 Personal history of malignant neoplasm of other parts of uterus; Z88.8 Allergy status to other drugs, medicaments and biological substances; Z79.01 Long term (current) use of anticoagulants; Z88.6 Allergy status to analgesic agent; I34.0 Nonrheumatic mitral (valve) insufficiency; E53.8 Deficiency of other specified B group vitamins; E55.9 Vitamin D deficiency, unspecified; D72.819 Decreased white blood cell count, unspecified; K21.9 Gastro-esophageal reflux disease without esophagitis; F41.9 Anxiety disorder, unspecified
CPT/HCPCS: 36416; 85610; 96372; J1650

== ENCOUNTER → 2018-11-11 | Outpatient (CLI) | payer MEDICARE, OTHER ==
[~2018-11-11] MED LIST changes: +CEPH250A PO
[2018-11-11 16:53] LABS: Source, Urine Clean Catch
[2018-11-11 17:06] LABS: Blood, Urine 4+ (Neg); Glucose Qualitative, Urine Neg (Neg); Ketones, Urine 3+ (Neg); Leukocyte Esterase, Urine 3+ (Neg); Nitrite, Urine Pos (Neg); Protein, Urine 1+ (Neg); Urobilinogen, Urine 2+ (Normal)
[2018-11-11 17:26] LABS: Bilirubin, Urine 1+ (Neg)
[2018-11-11 17:27] LABS: Appearance, Urine Hazy (Clear); Color, Urine Yellow (P-Yellow)
[2018-11-11 17:35] LABS: White Blood Cells, Urine 25-50 /hpf (0-5)
[2018-11-11 17:36] LABS: Bacteria Many /hpf; Red Blood Cells, Urine 0-2 /hpf (0-2); Squamous Epithelial Cells Few /hpf (Few)
== END | disposition home or self-care (01) ==
LOC: LAB SHORT 16:52 → LAB 16:52
PROVIDERS: Internal Medicine
DX: R30.0 Dysuria (principal); R31.29 Other microscopic hematuria
CPT/HCPCS: 81001; 87077; 87086; 87186

== ENCOUNTER 2018-11-12 07:55 | Day surgery (SDC) | payer MEDICARE, OTHER ==
--- NOTE | 2018-11-12 08:15 | NUR ---
FINGERSTICK INR 1.[address] STOREY CALLED PER ORDER WITH INR RESULTS. PER PT CAN CONTINUE WITH HER 6MG OF COUMADIN TONIGHT CONTINUE WITH LOVENOX ORDERED AND RECHECK INR TOMORROW
== END 2018-11-12 16:30 | disposition home or self-care (01) ==
LOC: ATC 07:55
DX: J90 Pleural effusion, not elsewhere classified (principal); I74.3 Embolism and thrombosis of arteries of the lower extremities
CPT/HCPCS: 36416; 85610; 96372; J1650

== ENCOUNTER 2018-11-13 07:53 | Day surgery (SDC) | payer MEDICARE, OTHER ==
--- NOTE | 2018-11-13 12:12 | NUR ---
1015-CALLED DR STOREY WITH INR RESULTS OF 1.3. ORDERS GIVEN FOR PT TO CONTINUE WITH 6MG COUMADIN, CONTINUE WITH LOVENOX, AND RECHECK INR TOMORROW AND CALL PCP WITH RESULTS
--- NOTE | 2018-11-13 16:22 | NUR ---
PT DECLINES VS THIS EVENING
[2018-11-14] MEDS ORDERED: CEPH250A PO (08:00)
== END 2018-11-13 16:30 | disposition home or self-care (01) ==
LOC: ATC 07:53
DX: J90 Pleural effusion, not elsewhere classified (principal); I74.3 Embolism and thrombosis of arteries of the lower extremities; Z88.6 Allergy status to analgesic agent; Z88.8 Allergy status to other drugs, medicaments and biological substances
CPT/HCPCS: 36416; 85610; 96372; J1650

== ENCOUNTER 2018-11-14 00:07 | Day surgery (SDC) | payer MEDICARE, OTHER ==
[2018-11-14] MEDS ORDERED: CEPH250A PO (08:00)
--- NOTE | 2018-11-14 08:02 | NUR ---
FINGERSTICK INR 1.5 MEDICATION GIVEN PER ORDERS
== END 2018-11-14 16:32 | disposition home or self-care (01) ==
LOC: ATC 00:07
DX: J90 Pleural effusion, not elsewhere classified (principal); I74.3 Embolism and thrombosis of arteries of the lower extremities; Z88.6 Allergy status to analgesic agent; Z88.8 Allergy status to other drugs, medicaments and biological substances
CPT/HCPCS: 85610; 96372; J1650

== ENCOUNTER 2018-11-15 07:11 | Day surgery (SDC) | payer MEDICARE, OTHER ==
[~2018-11-15 07:11] MED LIST changes: +CEPH250A PO
== END 2018-11-15 16:30 | disposition home or self-care (01) ==
LOC: ATC 07:11
DX: J90 Pleural effusion, not elsewhere classified (principal); I74.3 Embolism and thrombosis of arteries of the lower extremities; Z88.1 Allergy status to other antibiotic agents; Z88.6 Allergy status to analgesic agent; Z88.8 Allergy status to other drugs, medicaments and biological substances
CPT/HCPCS: 36416; 85610; 96372; J1650

== ENCOUNTER 2018-11-16 00:07 | Day surgery (SDC) | payer MEDICARE, OTHER | END 2018-11-16 16:56 | disposition home or self-care (01) | LOC: ATC 00:07 | DX: J90 Pleural effusion, not elsewhere classified (principal); I74.3 Embolism and thrombosis of arteries of the lower extremities; M16.12 Unilateral primary osteoarthritis, left hip; Z88.6 Allergy status to analgesic agent; Z88.8 Allergy status to other drugs, medicaments and biological substances; Z86.73 Personal history of transient ischemic attack (TIA), and cerebral infarction without residual deficits; Z79.899 Other long term (current) drug therapy | CPT/HCPCS: 36416; 85610; 96372; J1650 ==

== ENCOUNTER 2018-11-17 00:08 | Day surgery (SDC) | payer MEDICARE, OTHER | END 2018-11-17 16:38 | disposition home or self-care (01) | LOC: ATC 00:08 | DX: J90 Pleural effusion, not elsewhere classified (principal); I74.3 Embolism and thrombosis of arteries of the lower extremities; Z79.01 Long term (current) use of anticoagulants; Z85.42 Personal history of malignant neoplasm of other parts of uterus; C79.51 Secondary malignant neoplasm of bone; J45.909 Unspecified asthma, uncomplicated; I34.0 Nonrheumatic mitral (valve) insufficiency; G89.29 Other chronic pain; M54.5 Low back pain; Z86.718 Personal history of other venous thrombosis and embolism; Z87.11 Personal history of peptic ulcer disease; E53.8 Deficiency of other specified B group vitamins; E55.9 Vitamin D deficiency, unspecified; D72.819 Decreased white blood cell count, unspecified; Z86.73 Personal history of transient ischemic attack (TIA), and cerebral infarction without residual deficits; K52.9 Noninfective gastroenteritis and colitis, unspecified; K21.9 Gastro-esophageal reflux disease without esophagitis; F41.9 Anxiety disorder, unspecified; K64.8 Other hemorrhoids; M81.0 Age-related osteoporosis without current pathological fracture; Z79.899 Other long term (current) drug therapy; Z88.8 Allergy status to other drugs, medicaments and biological substances; Z88.1 Allergy status to other antibiotic agents; Z88.6 Allergy status to analgesic agent; M70.62 Trochanteric bursitis, left hip | CPT/HCPCS: 36416; 85610; 96372; J1650 ==

== ENCOUNTER 2018-11-18 02:19 | Day surgery (SDC) | payer MEDICARE, OTHER ==
--- NOTE | 2018-11-18 08:18 | NUR ---
FINGERSTICK INR 1.4 TODAY. RESULTS FAXED TO DR REMY
== END 2018-11-18 16:44 | disposition home or self-care (01) ==
LOC: ATC 02:19
DX: J90 Pleural effusion, not elsewhere classified (principal); I74.3 Embolism and thrombosis of arteries of the lower extremities; I74.2 Embolism and thrombosis of arteries of the upper extremities; K31.89 Other diseases of stomach and duodenum; J98.4 Other disorders of lung; D73.89 Other diseases of spleen; K76.89 Other specified diseases of liver; J45.909 Unspecified asthma, uncomplicated; K21.9 Gastro-esophageal reflux disease without esophagitis; F41.1 Generalized anxiety disorder; E55.9 Vitamin D deficiency, unspecified; Z88.8 Allergy status to other drugs, medicaments and biological substances; Z88.6 Allergy status to analgesic agent; Z88.1 Allergy status to other antibiotic agents; Z79.899 Other long term (current) drug therapy; Z79.01 Long term (current) use of anticoagulants
CPT/HCPCS: 36416; 85610; 96372; J1650

== ENCOUNTER 2018-11-19 07:59 | Day surgery (SDC) | payer MEDICARE, OTHER ==
--- NOTE | 2018-11-19 09:34 | NUR ---
FINGERSTICK INR = 1.5 TODAY.
--- NOTE | 2018-11-19 16:30 | NUR ---
ABBY IS PLANNING TO TAKE COUMADIN [address] REMY.
== END 2018-11-19 16:24 | disposition home or self-care (01) ==
LOC: ATC 07:59
DX: J90 Pleural effusion, not elsewhere classified (principal); I74.3 Embolism and thrombosis of arteries of the lower extremities; C79.51 Secondary malignant neoplasm of bone; J45.909 Unspecified asthma, uncomplicated; I34.0 Nonrheumatic mitral (valve) insufficiency; E55.9 Vitamin D deficiency, unspecified; E53.8 Deficiency of other specified B group vitamins; D72.819 Decreased white blood cell count, unspecified; K21.9 Gastro-esophageal reflux disease without esophagitis; F41.1 Generalized anxiety disorder; Z79.899 Other long term (current) drug therapy; Z79.01 Long term (current) use of anticoagulants; Z85.42 Personal history of malignant neoplasm of other parts of uterus; Z88.1 Allergy status to other antibiotic agents; Z88.8 Allergy status to other drugs, medicaments and biological substances
CPT/HCPCS: 36416; 85610; 96372; J1650

== ENCOUNTER 2018-11-20 08:01 | Day surgery (SDC) | payer MEDICARE, OTHER ==
--- NOTE | 2018-11-20 10:15 | NUR ---
FINGERSTICK INR IS 1.6 MEDICATION GIVEN PER ORDERS.
== END 2018-11-20 16:35 | disposition home or self-care (01) ==
LOC: ATC 08:01
DX: J90 Pleural effusion, not elsewhere classified (principal); I74.3 Embolism and thrombosis of arteries of the lower extremities; Z88.6 Allergy status to analgesic agent; Z88.1 Allergy status to other antibiotic agents; Z88.8 Allergy status to other drugs, medicaments and biological substances
CPT/HCPCS: 36416; 85610; 96372; J1650

== ENCOUNTER 2018-11-21 00:01 | Day surgery (SDC) | payer MEDICARE, OTHER ==
--- NOTE | 2018-11-21 08:05 | NUR ---
INR ON DEVORA MACHINE IS 1.8
== END 2018-11-21 16:11 | disposition home or self-care (01) ==
LOC: ATC 00:01
DX: J90 Pleural effusion, not elsewhere classified (principal); I74.3 Embolism and thrombosis of arteries of the lower extremities
CPT/HCPCS: 36416; 85610; 96372; J1650

== ENCOUNTER 2018-11-22 00:10 | Day surgery (SDC) | payer MEDICARE, OTHER ==
--- NOTE | 2018-11-22 08:09 | NUR ---
INR ON ATC MACHINE 1.9.
== END 2018-11-22 16:10 | disposition home or self-care (01) ==
LOC: ATC 00:10
DX: J90 Pleural effusion, not elsewhere classified (principal); I74.3 Embolism and thrombosis of arteries of the lower extremities; I74.2 Embolism and thrombosis of arteries of the upper extremities; K31.89 Other diseases of stomach and duodenum; K21.9 Gastro-esophageal reflux disease without esophagitis; F41.1 Generalized anxiety disorder; Z88.8 Allergy status to other drugs, medicaments and biological substances; Z88.6 Allergy status to analgesic agent; Z88.1 Allergy status to other antibiotic agents; Z79.899 Other long term (current) drug therapy; Z79.01 Long term (current) use of anticoagulants
CPT/HCPCS: 36416; 85610; 96372; J1650

== ENCOUNTER 2018-11-23 00:09 | Day surgery (SDC) | payer MEDICARE, OTHER | END 2018-11-23 16:05 | disposition home or self-care (01) | LOC: ATC 00:09 | DX: I74.3 Embolism and thrombosis of arteries of the lower extremities (principal); I74.2 Embolism and thrombosis of arteries of the upper extremities; K31.89 Other diseases of stomach and duodenum; Z88.6 Allergy status to analgesic agent; Z88.8 Allergy status to other drugs, medicaments and biological substances; Z88.1 Allergy status to other antibiotic agents | CPT/HCPCS: 36416; 85610; 96372; J1650 ==

== ENCOUNTER 2018-11-24 | Day surgery (SDC) | payer MEDICARE, OTHER | END 2018-11-24 07:58 | disposition home or self-care (01) | LOC: ATC | DX: J90 Pleural effusion, not elsewhere classified (principal); I74.3 Embolism and thrombosis of arteries of the lower extremities; K21.9 Gastro-esophageal reflux disease without esophagitis; F41.1 Generalized anxiety disorder; Z88.8 Allergy status to other drugs, medicaments and biological substances; Z88.6 Allergy status to analgesic agent; Z88.1 Allergy status to other antibiotic agents; Z79.899 Other long term (current) drug therapy; Z79.01 Long term (current) use of anticoagulants | CPT/HCPCS: 36416; 85610; 99211 ==

== ENCOUNTER 2018-12-10 07:32 | Day surgery (SDC) | payer MEDICARE, OTHER | END 2018-12-10 16:42 | disposition home or self-care (01) | LOC: ATC 07:32 | DX: I74.2 Embolism and thrombosis of arteries of the upper extremities (principal); I74.3 Embolism and thrombosis of arteries of the lower extremities; J90 Pleural effusion, not elsewhere classified; K31.89 Other diseases of stomach and duodenum | CPT/HCPCS: 96372; J1650 ==

== ENCOUNTER 2018-12-11 07:38 | Day surgery (SDC) | payer MEDICARE, OTHER | END 2018-12-11 16:43 | disposition home or self-care (01) | LOC: ATC 07:38 | DX: I74.3 Embolism and thrombosis of arteries of the lower extremities (principal); I74.2 Embolism and thrombosis of arteries of the upper extremities; J90 Pleural effusion, not elsewhere classified; K31.89 Other diseases of stomach and duodenum; Z88.8 Allergy status to other drugs, medicaments and biological substances; Z88.6 Allergy status to analgesic agent | CPT/HCPCS: 96372; J1650 ==

== ENCOUNTER 2018-12-12 00:09 | Day surgery (SDC) | payer MEDICARE, OTHER | END 2018-12-12 16:46 | disposition home or self-care (01) | LOC: ATC 00:09 | DX: I74.2 Embolism and thrombosis of arteries of the upper extremities (principal); I74.3 Embolism and thrombosis of arteries of the lower extremities; K31.89 Other diseases of stomach and duodenum; J90 Pleural effusion, not elsewhere classified; J45.909 Unspecified asthma, uncomplicated; F41.1 Generalized anxiety disorder; Z88.8 Allergy status to other drugs, medicaments and biological substances; Z88.6 Allergy status to analgesic agent; Z88.1 Allergy status to other antibiotic agents; Z79.899 Other long term (current) drug therapy; Z79.01 Long term (current) use of anticoagulants | CPT/HCPCS: 96372; J1650 ==

== ENCOUNTER 2018-12-13 00:08 | Day surgery (SDC) | payer MEDICARE, OTHER | END 2018-12-13 07:54 | disposition home or self-care (01) | LOC: ATC 00:08 | DX: I74.3 Embolism and thrombosis of arteries of the lower extremities (principal) | CPT/HCPCS: 96372; J1650 ==

== ENCOUNTER 2018-12-15 00:23 | Day surgery (SDC) | payer MEDICARE, OTHER | END 2018-12-15 16:36 | disposition home or self-care (01) | LOC: ATC 00:23 | DX: Z09 Encounter for follow-up examination after completed treatment for conditions other than malignant neoplasm (principal); Z86.718 Personal history of other venous thrombosis and embolism; Z79.01 Long term (current) use of anticoagulants; Z79.899 Other long term (current) drug therapy | CPT/HCPCS: 36416; 85610; 96372; J1650 ==

== ENCOUNTER 2018-12-16 01:53 | Day surgery (SDC) | payer MEDICARE, OTHER ==
--- NOTE | 2018-12-16 08:43 | NUR ---
INR 1.1, PT HAD TO BE POKED 7 TIMES TO GET CAPILLARY BLOOD DRAW. PT WITH SMALL NODULE NOTED ON L SIDE OF ABDOMIN. SIZE IS 3.0 CM WIDE AND 1.5 CM TALL. WILL CALL DR REMY WITH AN UP DATE.
== END 2018-12-16 16:10 | disposition home or self-care (01) ==
LOC: ATC 01:53
DX: Z09 Encounter for follow-up examination after completed treatment for conditions other than malignant neoplasm (principal); Z86.718 Personal history of other venous thrombosis and embolism; Z79.01 Long term (current) use of anticoagulants
CPT/HCPCS: 36416; 85610; 96372; J1650

== ENCOUNTER 2018-12-17 07:55 | Day surgery (SDC) | payer MEDICARE, OTHER | END 2018-12-17 16:13 | disposition home or self-care (01) | LOC: ATC 07:55 | DX: Z09 Encounter for follow-up examination after completed treatment for conditions other than malignant neoplasm (principal); Z79.01 Long term (current) use of anticoagulants; Z86.718 Personal history of other venous thrombosis and embolism; Z79.899 Other long term (current) drug therapy | CPT/HCPCS: 36416; 85610; 96372 ==

== ENCOUNTER 2018-12-18 07:58 | Day surgery (SDC) | payer MEDICARE, OTHER ==
[~2018-12-18] VITALS: Wt 49.0 kg
--- NOTE | 2018-12-18 11:14 | NUR ---
SPOKE WITH DR REMY RE PTS LE 1.3. PT TO CONTINUE ON 7.5MG COUMADIN AND RECHECK IN AM.
== END 2018-12-18 16:08 | disposition home or self-care (01) ==
LOC: ATC 07:58
DX: Z09 Encounter for follow-up examination after completed treatment for conditions other than malignant neoplasm (principal); Z86.718 Personal history of other venous thrombosis and embolism; Z79.01 Long term (current) use of anticoagulants
CPT/HCPCS: 36416; 85610; 96372; J1650

== ENCOUNTER 2018-12-19 07:31 | Day surgery (SDC) | payer MEDICARE, OTHER | END 2018-12-19 15:40 | disposition home or self-care (01) | LOC: ATC 07:31 | DX: I74.3 Embolism and thrombosis of arteries of the lower extremities (principal); J90 Pleural effusion, not elsewhere classified; Z88.8 Allergy status to other drugs, medicaments and biological substances; Z88.6 Allergy status to analgesic agent; Z88.1 Allergy status to other antibiotic agents; Z79.899 Other long term (current) drug therapy; Z79.01 Long term (current) use of anticoagulants | CPT/HCPCS: 36416; 85610; 96372; J1650 ==

== ENCOUNTER 2018-12-20 00:04 | Day surgery (SDC) | payer MEDICARE, OTHER | END 2018-12-20 16:05 | disposition home or self-care (01) | LOC: ATC 00:04 | DX: Z09 Encounter for follow-up examination after completed treatment for conditions other than malignant neoplasm (principal); Z86.718 Personal history of other venous thrombosis and embolism; Z79.01 Long term (current) use of anticoagulants | CPT/HCPCS: 85610; 96372; J1650 ==

== ENCOUNTER 2018-12-21 00:04 | Day surgery (SDC) | payer MEDICARE, OTHER | END 2018-12-21 16:13 | disposition home or self-care (01) | LOC: ATC 00:04 | DX: I74.3 Embolism and thrombosis of arteries of the lower extremities (principal); J90 Pleural effusion, not elsewhere classified; Z88.1 Allergy status to other antibiotic agents; Z88.6 Allergy status to analgesic agent; Z88.8 Allergy status to other drugs, medicaments and biological substances | CPT/HCPCS: 36416; 85610; 96372; J1650 ==

== ENCOUNTER 2018-12-22 00:06 | Day surgery (SDC) | payer MEDICARE, OTHER ==
[~2018-12-22] VITALS: Wt 49.0 kg
--- NOTE | 2018-12-22 08:32 | NUR ---
INR 2.1, NO LOVENOX GIVEN. PT DISCHARGED FROM [facility].
== END 2018-12-22 07:48 | disposition home or self-care (01) ==
LOC: ATC 00:06
DX: I74.3 Embolism and thrombosis of arteries of the lower extremities (principal); J90 Pleural effusion, not elsewhere classified; Z88.8 Allergy status to other drugs, medicaments and biological substances; Z88.6 Allergy status to analgesic agent; Z88.1 Allergy status to other antibiotic agents; Z79.899 Other long term (current) drug therapy; Z79.01 Long term (current) use of anticoagulants
CPT/HCPCS: 36416; 85610; 99211; J1650

== ENCOUNTER → 2019-02-21 | Outpatient (CLI) | payer MEDICARE, OTHER | END | disposition home or self-care (01) | LOC: LAB SHORT 03:50 → LAB 03:50 | DX: R19.7 Diarrhea, unspecified (principal); C82.90 Follicular lymphoma, unspecified, unspecified site | CPT/HCPCS: 87493 ==

== ENCOUNTER → 2019-03-18 | Outpatient (CLI) | payer MEDICARE, OTHER | END | disposition home or self-care (01) | LOC: OLS 15:30 → LAB SHORT 15:30 | DX: R19.7 Diarrhea, unspecified (principal) | CPT/HCPCS: 87493 ==

== ENCOUNTER 2019-10-02 00:44 | Day surgery (SDC) | payer MEDICARE, OTHER | END 2019-10-02 23:10 | disposition home or self-care (01) | LOC: WOUND 00:44 | DX: N30.41 Irradiation cystitis with hematuria (principal) | CPT/HCPCS: G0463 ==

== ENCOUNTER 2019-10-09 09:02 | Day surgery (SDC) | payer MEDICARE, OTHER | END 2019-10-09 22:36 | disposition home or self-care (01) | LOC: HBO 09:02 | DX: N30.41 Irradiation cystitis with hematuria (principal) | CPT/HCPCS: G0277 ==

== ENCOUNTER 2019-10-10 12:25 | Day surgery (SDC) | payer MEDICARE, OTHER | END 2019-10-10 22:35 | disposition home or self-care (01) | LOC: HBO 12:25 | DX: N30.41 Irradiation cystitis with hematuria (principal) | CPT/HCPCS: G0277 ==

== ENCOUNTER 2019-10-11 00:57 | Day surgery (SDC) | payer MEDICARE, OTHER | END 2019-10-11 22:56 | disposition home or self-care (01) | LOC: HBO 00:57 | DX: N30.41 Irradiation cystitis with hematuria (principal) | CPT/HCPCS: G0277 ==

== ENCOUNTER 2019-10-12 00:13 | Day surgery (SDC) | payer MEDICARE, OTHER | END 2019-10-12 23:09 | disposition home or self-care (01) | LOC: HBO 00:13 | DX: N30.41 Irradiation cystitis with hematuria (principal) | CPT/HCPCS: G0277 ==

== ENCOUNTER 2019-10-13 01:35 | Day surgery (SDC) | payer MEDICARE, OTHER | END 2019-10-13 22:41 | disposition home or self-care (01) | LOC: HBO 01:35 | DX: N30.41 Irradiation cystitis with hematuria (principal) | CPT/HCPCS: G0277 ==

== ENCOUNTER 2019-10-16 00:15 | Day surgery (SDC) | payer MEDICARE, OTHER | END 2019-10-16 22:37 | disposition home or self-care (01) | LOC: HBO 00:15 | DX: N30.41 Irradiation cystitis with hematuria (principal) | CPT/HCPCS: G0277 ==

== ENCOUNTER 2019-10-17 00:17 | Day surgery (SDC) | payer MEDICARE, OTHER | END 2019-10-17 23:11 | disposition home or self-care (01) | LOC: HBO 00:17 | DX: N30.41 Irradiation cystitis with hematuria (principal) | CPT/HCPCS: G0277 ==

== ENCOUNTER 2019-10-23 00:07 | Day surgery (SDC) | payer MEDICARE, OTHER | END 2019-10-23 22:38 | disposition home or self-care (01) | LOC: HBO 00:07 | DX: N30.41 Irradiation cystitis with hematuria (principal) | CPT/HCPCS: G0277 ==

== ENCOUNTER 2019-10-30 14:00 | Day surgery (SDC) | payer MEDICARE, OTHER | END 2019-11-14 23:13 | disposition home or self-care (01) | LOC: HBO 14:00 | DX: N30.41 Irradiation cystitis with hematuria (principal) | CPT/HCPCS: G0277 ==

== ENCOUNTER 2019-11-20 00:43 | Day surgery (SDC) | payer MEDICARE, OTHER | END 2019-11-20 22:52 | disposition home or self-care (01) | LOC: HBO 00:43 | DX: N30.41 Irradiation cystitis with hematuria (principal) | CPT/HCPCS: G0277 ==

== ENCOUNTER 2019-11-21 00:21 | Day surgery (SDC) | payer MEDICARE, OTHER | END 2019-11-21 22:43 | disposition home or self-care (01) | LOC: HBO 00:21 | DX: N30.41 Irradiation cystitis with hematuria (principal) | CPT/HCPCS: G0277 ==

== ENCOUNTER 2019-12-01 00:26 | Day surgery (SDC) | payer MEDICARE, OTHER | END 2019-12-01 22:47 | disposition home or self-care (01) | LOC: HBO 00:26 | DX: N30.41 Irradiation cystitis with hematuria (principal) | CPT/HCPCS: G0277; G0463 ==

== ENCOUNTER 2019-12-04 00:18 | Day surgery (SDC) | payer MEDICARE, OTHER | END 2019-12-04 22:47 | disposition home or self-care (01) | LOC: HBO 00:18 | DX: N30.41 Irradiation cystitis with hematuria (principal) | CPT/HCPCS: G0277 ==

== ENCOUNTER 2019-12-11 00:20 | Day surgery (SDC) | payer MEDICARE, OTHER | END 2019-12-11 22:57 | disposition home or self-care (01) | LOC: HBO 00:20 | DX: N30.41 Irradiation cystitis with hematuria (principal) | CPT/HCPCS: G0277 ==

== ENCOUNTER 2019-12-12 00:46 | Day surgery (SDC) | payer MEDICARE, OTHER | END 2019-12-12 22:51 | disposition home or self-care (01) | LOC: HBO 00:46 | DX: N30.41 Irradiation cystitis with hematuria (principal) | CPT/HCPCS: G0277 ==

== ENCOUNTER 2019-12-18 00:35 | Day surgery (SDC) | payer MEDICARE, OTHER | END 2019-12-18 22:51 | disposition home or self-care (01) | LOC: WOUND 00:35 | DX: N30.41 Irradiation cystitis with hematuria (principal); J45.909 Unspecified asthma, uncomplicated; M19.90 Unspecified osteoarthritis, unspecified site; Z86.73 Personal history of transient ischemic attack (TIA), and cerebral infarction without residual deficits | CPT/HCPCS: G0463 ==

== ENCOUNTER → 2020-05-16 | Outpatient (CLI) | payer MEDICARE, OTHER ==
[~2020-05-16] MED LIST changes: +BISA10S PR; +DOC250 PO; +ELIQUIS2.5 MG PO; +FAMO20 PO; +FLUC200 PO; +MAALOX PLUS PO; +MELATONIN5 M1 PO; +METO5A PO; +NORTRIPTYLINE H PO; +PRESERVISION A1 EAC1 PO; -PRESERVISION A1 EACH PO; +PSEUDOEPHEDRINE30 M4 PO; +SORBITOL PO; +XANAX0.25 MG PO; +ZOLEDRONIC ACID4 M1 IV; -ZOLEDRONIC4 MG/1001 PO; +[UNRECOGNIZED DRUG - OTHER] PO; +[UNRECOGNIZED DRUG - OTHER] PO
[2020-05-16 16:17] LABS: Source, Urine Clean Catch
[2020-05-16 18:51] LABS: Appearance, Urine Clear (Clear); Bilirubin, Urine Neg (Neg); Blood, Urine Neg (Neg); Color, Urine Yellow (P-Yellow); Glucose Qualitative, Urine Neg (Neg); Ketones, Urine 1+ (Neg); Leukocyte Esterase, Urine 1+ (Neg); Nitrite, Urine Neg (Neg); Protein, Urine 1+ (Neg); Specific Gravity, Urine 1.015 (1.003-1.022); Urobilinogen, Urine NORM (Normal)
[2020-05-16 19:14] LABS: Bacteria Rare /hpf; Red Blood Cells, Urine 0-2 /hpf (0-2); Squamous Epithelial Cells Few /hpf (Few); White Blood Cells, Urine 0-2 /hpf (0-5)
== END | disposition home or self-care (01) ==
LOC: LAB 16:00
PROVIDERS: Internal Medicine
DX: N39.0 Urinary tract infection, site not specified (principal); R19.7 Diarrhea, unspecified
CPT/HCPCS: 81001; 87086

== ENCOUNTER → 2020-05-20 | Outpatient (CLI) | payer MEDICARE, OTHER | LOC: LAB 09:00 → LAB SHORT 09:00 → LAB FUT 05-13 17:30 | DX: N39.0 Urinary tract infection, site not specified (principal); R19.7 Diarrhea, unspecified | CPT/HCPCS: 87015; 87045; 87046; 87177; 87205; 87209; 87328; 87329; 87493; 87899 ==

== ENCOUNTER → 2020-06-24 | Outpatient (CLI) | payer MEDICARE, OTHER | END | disposition home or self-care (01) | LOC: LAB SHORT 18:30 → LAB 18:30 | DX: K21.9 Gastro-esophageal reflux disease without esophagitis (principal); K86.9 Disease of pancreas, unspecified; R11.10 Vomiting, unspecified; R19.7 Diarrhea, unspecified; R10.33 Periumbilical pain | CPT/HCPCS: 82656 ==

== ENCOUNTER 2020-08-07 23:19 | Inpatient (IN) | payer MEDICARE, OTHER ==
[~2020-08-07] VITALS: Ht 157.5 cm; Wt 37.6 kg
[~2020-08-07 23:19] MED LIST changes: -BISA10S PR; -DOC250 PO; -ELIQUIS2.5 MG PO; -FAMO20 PO; -FLUC200 PO; -MAALOX PLUS PO; -MELATONIN5 M1 PO; -METO5A PO; -NORTRIPTYLINE H PO; -PSEUDOEPHEDRINE30 M4 PO; -SORBITOL PO; -XANAX0.25 MG PO; -[UNRECOGNIZED DRUG - OTHER] PO; -[UNRECOGNIZED DRUG - OTHER] PO
[2020-08-08 00:07] LABS: BASOPHILS ABSOLUTE AUTO 0.01 K/mm3 (0.00-0.23); BASOPHILS PERCENT AUTO 0 % (0-2); EOSINOPHILS ABSOLUTE AUTO 0.01 K/mm3 (0.00-0.68); EOSINOPHILS PERCENT AUTO 0 % (0-6); Hematocrit 41.9 % (33.0-51.0); Hemoglobin 13.9 g/dL (11.5-16.0); IMMATURE GRAN ABSOLUTE AUTO 0.01 K/mm3 (0.00-0.10); IMMATURE GRAN PERCENT AUTO 0 % (0-1); LYMPHOCYTES ABSOLUTE AUTO 1.53 K/mm3 (0.84-5.20); LYMPHOCYTES PERCENT AUTO 35 % (21-46); MONOCYTES PERCENT AUTO 9 % (4-13); Mean Corpuscular HGB Conc 33.2 g/dL (31.5-36.5); Mean Corpuscular Volume 85 fL (80-100); Mean Platelet Volume 10.6 fL (9.1-12.4); NEUTROPHILS ABSOLUTE AUTO 2.39 K/mm3 (1.96-9.15); NEUTROPHILS PERCENT AUTO 55 % (41-73); Platelet Count 177 K/mm3 (150-400); RDW Coefficient Variation 18.7 % (11.7-14.2); RDW Standard Deviation 57.8 fL (35.1-46.3); Red Blood Cell Count 4.96 M/mm3 (3.80-5.20); White Blood Cell Count 4.35 K/mm3 (4.00-11.30)
[2020-08-08 00:27] LABS: Alanine Aminotransfer (ALT/SGP 33 U/L (12-78); Albumin, Blood 2.7 g/dL (3.4-5.0); Albumin/Globulin Ratio 0.9 (0.8-1.8); Alk Phos 107 U/L (50-136); Anion Gap 4 mmol/L (6-16); Aspartate Aminotrans (AST/SGOT 55 U/L (12-37); Bilirubin, Total 0.4 mg/dL (0.1-1.0); Blood Urea Nitrogen 12 mg/dL (8-24); Bun/Creatinine Ratio 18.3 (12.0-20.0); CO2, Blood 31 mmol/L (21-32); Calcium, Blood 7.6 mg/dL (8.5-10.1); Chloride, Blood 102 mmol/L (98-108); Creatinine, Blood 0.66 mg/dL (0.40-1.00); Globulin, Blood 2.9 g/dL (2.2-4.0); Glomerular Filtration Rate >60 (60-); Glucose, Blood 89 mg/dL (70-99); Potassium, Blood 3.6 mmol/L (3.5-5.5); Sodium, Blood 137 mmol/L (136-145); Total Protein, Blood 5.6 g/dL (6.4-8.2)
[2020-08-08 00:58] LABS: Source, Urine Clean Catch
[2020-08-08] MEDS ORDERED: PSEUDOEPHEDRINE30 M4 PO (01:07)
[2020-08-08] MEDS ORDERED: NORTRIPTYLINE H PO (01:07)
[2020-08-08] MEDS ORDERED: ELIQUIS2.5 MG PO (01:08)
[2020-08-08] MEDS ORDERED: DOC250 PO (01:08)
[2020-08-08 01:18] LABS: Bilirubin, Urine Neg (Neg); Blood, Urine 5+ (Neg); Glucose Qualitative, Urine Neg (Neg); Ketones, Urine 1+ (Neg); Leukocyte Esterase, Urine 3+ (Neg); Nitrite, Urine Pos (Neg); Protein, Urine 3+ (Neg); Specific Gravity, Urine 1.015 (1.003-1.022); Urobilinogen, Urine NORM (Normal)
[2020-08-08 01:20] LABS: Appearance, Urine Hazy (Clear); Color, Urine Red (P-Yellow)
[2020-08-08 01:26] LABS: Bacteria Mod /hpf; Red Blood Cells, Urine TNTC /hpf (0-2); Squamous Epithelial Cells Not Seen /hpf (Few); White Blood Cells, Urine TNTC /hpf (0-5)
--- NOTE | 2020-08-08 03:58 | NUR ---
transfer report from [employer] [facility] Marisa on 79 year old with CO N V D & abd pain. UA positive C & S pending. PT will be accompanied by DIL for assist with admission assessment. Await admit to obs status. NPO due to possible SBO
[2020-08-08] MEDS ORDERED: XANAX0.25 MG PO (04:43)
--- NOTE | 2020-08-08 18:02 | NUR ---
SHIFT SUMMARY- PT IS A/O, PLESANT AND COOPERATIVE. SHE IS NPO. SHE IS VOIDING WELL. SHE IS RECIEVING IV FLUIDS AND WILL BE SWITCHED TO CLINAMIX. SHE SLEPT FOR MOST OF THE MORNING. HER DAUGHTER VISITED THIS AFTERNOON. SHE IS USING THE BSC. HER BED IS IN THE LOW POSITION AND CALL LIGHT IS WITHIN REACH.
--- NOTE | 2020-08-09 04:38 | NUR ---
SHIFT SUMMARY NO ACUTE CHANGES TO REPORT THIS SHIFT. PT HAS RESTED MOST OF THE NIGHT, MEDICATED X1 AT THE BEGINNING OF THE SHIFT FOR ABD PAIN WITH EFFECT. PT HAS BEEN FREE OF NAUSEA AND VOMITTING. STILL NO BM THIS SHIFT AFTER SUPPOSITORY. PPN INFUSING ORDERED. PT A/OX4 PLESANT WITH CARE. VITALS STABLE. BED IN LOWEST POSITION, CALL LIGHT WITHIN REACH.
[2020-08-09 05:33] LABS: Hematocrit 38.1 % (33.0-51.0); Hemoglobin 12.6 g/dL (11.5-16.0); Mean Corpuscular HGB 28.1 pg (26.0-34.0); Mean Corpuscular HGB Conc 33.1 g/dL (31.5-36.5); Mean Corpuscular Volume 85 fL (80-100); Mean Platelet Volume 10.7 fL (9.1-12.4); Platelet Count 142 K/mm3 (150-400); RDW Coefficient Variation 18.7 % (11.7-14.2); RDW Standard Deviation 58.4 fL (35.1-46.3); Red Blood Cell Count 4.49 M/mm3 (3.80-5.20); White Blood Cell Count 4.65 K/mm3 (4.00-11.30)
--- NOTE | 2020-08-09 05:41 | NUR ---
LARGE BM PT HAD LARGE LOOSE BM THIS AM. POST SUPPOSITORY THAT SHE RECEIVED AT HS.
[2020-08-09 06:00] LABS: Albumin, Blood 1.9 g/dL (3.4-5.0); Anion Gap 11 mmol/L (6-16); Blood Urea Nitrogen 11 mg/dL (8-24); Bun/Creatinine Ratio 22.2 (12.0-20.0); CO2, Blood 24 mmol/L (21-32); Calcium, Blood 6.5 mg/dL (8.5-10.1); Chloride, Blood 105 mmol/L (98-108); Glomerular Filtration Rate >60 (60-); Glucose, Blood 113 mg/dL (70-99); Phosphorus, Blood 2.5 mg/dL (2.5-4.9); Potassium, Blood 3.2 mmol/L (3.5-5.5); Sodium, Blood 140 mmol/L (136-145); Triglycerides 162 mg/dL (30-160)
--- NOTE | 2020-08-09 13:43 | NUR ---
Spiritual care visit attempted. After receiving a spiritual care referral, I visit patient. I introduce myself. Patient asks if I am a high pressure cleaner. I say that I am not. She thanks me for coming and explains that she was hoping to talk to a Dashboard Developer. I try to communicate further to ask if I can arrange something for a high pressure cleaner to come in but patient was done talking at this point.
[2020-08-10 04:47] LABS: Hematocrit 37.2 % (33.0-51.0); Hemoglobin 12.6 g/dL (11.5-16.0); Mean Corpuscular HGB 28.6 pg (26.0-34.0); Mean Corpuscular HGB Conc 33.9 g/dL (31.5-36.5); Mean Corpuscular Volume 85 fL (80-100); Mean Platelet Volume 10.9 fL (9.1-12.4); Platelet Count 143 K/mm3 (150-400); RDW Coefficient Variation 18.8 % (11.7-14.2); RDW Standard Deviation 58.8 fL (35.1-46.3); White Blood Cell Count 3.19 K/mm3 (4.00-11.30)
[2020-08-10 05:11] LABS: Albumin, Blood 2.1 g/dL (3.4-5.0); Anion Gap 4 mmol/L (6-16); Blood Urea Nitrogen 8 mg/dL (8-24); Bun/Creatinine Ratio 18.2 (12.0-20.0); CO2, Blood 30 mmol/L (21-32); Calcium, Blood 7.3 mg/dL (8.5-10.1); Chloride, Blood 106 mmol/L (98-108); Creatinine, Blood 0.44 mg/dL (0.40-1.00); Glomerular Filtration Rate >60 (60-); Glucose, Blood 120 mg/dL (70-99); Phosphorus, Blood 1.7 mg/dL (2.5-4.9); Potassium, Blood 3.5 mmol/L (3.5-5.5); Sodium, Blood 140 mmol/L (136-145)
--- NOTE | 2020-08-10 05:56 | NUR ---
PT IS A/O, STANDBY TO BSC. PT IS VERY THIN RECIEVING CLINIMIX AND LIPIDS. EGGCRATE MATTRESS PLACED ON BED THIS SHIFT FOR COMFORT, MEDICATED FOR BACK PAIN PER EMAR. PT HAS HAD SOFT STOOLS THIS SHIFT.
[2020-08-11 05:16] LABS: Albumin, Blood 2.5 g/dL (3.4-5.0); Anion Gap 6 mmol/L (6-16); Blood Urea Nitrogen 5 mg/dL (8-24); Bun/Creatinine Ratio 9.4 (12.0-20.0); CO2, Blood 31 mmol/L (21-32); Calcium, Blood 8.2 mg/dL (8.5-10.1); Chloride, Blood 102 mmol/L (98-108); Creatinine, Blood 0.53 mg/dL (0.40-1.00); Glomerular Filtration Rate >60 (60-); Glucose, Blood 105 mg/dL (70-99); Potassium, Blood 3.4 mmol/L (3.5-5.5); Sodium, Blood 139 mmol/L (136-145)
--- NOTE | 2020-08-11 05:32 | NUR ---
PT IS A/O, NO IV AT THIS TIME, TOLERATING FL DIET BUT DID HAVE AN EPISODE OF NAUSEA WITH 20CC OF EMESIS. MEDICATED FOR BACK PAIN PER EMAR, PT HAS C/O "GAS BUBBLES" THIS SHIFT. WILL REPORT TO ONCOMING SHIFT.
[2020-08-12 04:59] LABS: Albumin, Blood 2.4 g/dL (3.4-5.0); Anion Gap 4 mmol/L (6-16); Blood Urea Nitrogen 4 mg/dL (8-24); Bun/Creatinine Ratio 6.4 (12.0-20.0); CO2, Blood 36 mmol/L (21-32); Calcium, Blood 8.3 mg/dL (8.5-10.1); Chloride, Blood 99 mmol/L (98-108); Creatinine, Blood 0.62 mg/dL (0.40-1.00); Glomerular Filtration Rate >60 (60-); Glucose, Blood 106 mg/dL (70-99); Phosphorus, Blood 4.3 mg/dL (2.5-4.9); Potassium, Blood 3.6 mmol/L (3.5-5.5); Sodium, Blood 139 mmol/L (136-145)
--- NOTE | 2020-08-12 05:32 | NUR ---
SHIFT SUMMARY PATIENT ALERT AND ORIENTED. MEDICATED PER EMAR FOR PAIN AND NAUSEA. NO BOWEL MOVEMENT OR VOMITING OVERNIGHT. PATIENT TOLERATING CLEAR LIQUID DIET. PATIENT SLEPT WELL OVERNIGHT AND HAD MINIMAL NEEDS. BED IN LOWEST POSITION WITH WHEELS LOCKED. CALL LIGHT WITHIN REACH. REPORT GIVEN TO ONCOMING RN.
--- NOTE | 2020-08-13 04:53 | NUR ---
SHIFT SUMMARY NO ACUTE EVENTS THIS SHIFT. PT SLEPT WELL T/O NIGHT. PT STATES SHE WASN'T ABLE TO VOID ALL DAY BUT WAS ABLE TO VOID X3 THIS SHIFT W/O HEMATURIA. PT STATES SHE IS FEELING BETTER W/O ANY NAUSEA THIS SHIFT. PT STILL SAYS SHE IS SLIGHTLY DIZZY WHEN STANDING UP. OTHERWISE NO OTHER COMPLAINTS THIS SHIFT. PT IS LAYING IN BED WITH EYES CLOSED, EVEN AND UNLABORED RESPIRATIONS, WITH HOB ELEVATED. BED IN LOWERED POSITION WITH SIDE RAILS UP X2 FOR SAFETY. CALL LIGHT AND PERSONAL ITEMS WITH IN REACH. NO APPARENT NEEDS OR DISTRESS AT THIS TIME, WILL CONTINUE TO MONITOR UNTIL REPORT GIVEN TO DAY RN.
[2020-08-13 05:08] LABS: Albumin, Blood 2.1 g/dL (3.4-5.0); Anion Gap 3 mmol/L (6-16); Blood Urea Nitrogen 10 mg/dL (8-24); Bun/Creatinine Ratio 19.5 (12.0-20.0); CO2, Blood 36 mmol/L (21-32); Calcium, Blood 7.8 mg/dL (8.5-10.1); Chloride, Blood 98 mmol/L (98-108); Creatinine, Blood 0.51 mg/dL (0.40-1.00); Glomerular Filtration Rate >60 (60-); Glucose, Blood 115 mg/dL (70-99); Magnesium, Blood 1.7 mg/dL (1.6-2.4); Phosphorus, Blood 3.5 mg/dL (2.5-4.9); Potassium, Blood 3.1 mmol/L (3.5-5.5); Sodium, Blood 137 mmol/L (136-145)
--- NOTE | 2020-08-13 13:30 | NUR ---
Met pt. in bed resting.She reports to be doing well , encouraged pt. and offered prayers .
--- NOTE | 2020-08-13 18:16 | NUR ---
SHIFT SUMMARY PATIENT ALERT AND ORIENTED THIS SHIFT. PATIENT DOWN TO IMAGING FOR SMALL BOWEL OBSTRUCTION IMAGING THIS AM. PATIENT STATES THAT SHE HAD 1 EPISODE OF EMISIS AFTER DRINKING THE CONTRAST. PATIENT DENIES N/V AFTER. PATIENT REMAINS ON NG TUBE TO LOW/INT SUCTION. PATIENT 1 MIN ASSIST TO THE BEDSIDE COMODE EARLY THIS SHIFT. PATIENT WORKED WITH PT THIS SHIFT, WALKED TO THE BATHROOM. PATIENT ENCOURAGED TO WALK TO BATHROOM AFTER. PATIENT MEDICATED THROUGHOUT THIS SHIFT FOR PAIN. PATIENT HAD MULTIPLE BM'S THIS SHIFT AFTER DRINKING CONTRAST. PATIENT REMAINS NPO WITH CLINIMIX & LIPIDS IV. PATIENT'S DAUGHTER IN THE ROOM VISITING THIS AFTERNOON. PATIENT CURRENTLY SITTING UP IN BED WATCHING TELEVISION.
[2020-08-14 05:56] LABS: Albumin, Blood 2.4 g/dL (3.4-5.0); Anion Gap 3 mmol/L (6-16); Blood Urea Nitrogen 20 mg/dL (8-24); Bun/Creatinine Ratio 38.1 (12.0-20.0); CO2, Blood 41 mmol/L (21-32); Calcium, Blood 8.5 mg/dL (8.5-10.1); Chloride, Blood 96 mmol/L (98-108); Creatinine, Blood 0.53 mg/dL (0.40-1.00); Glomerular Filtration Rate >60 (60-); Glucose, Blood 121 mg/dL (70-99); Magnesium, Blood 2.3 mg/dL (1.6-2.4); Phosphorus, Blood 3.8 mg/dL (2.5-4.9); Potassium, Blood 3.4 mmol/L (3.5-5.5); Sodium, Blood 140 mmol/L (136-145)
--- NOTE | 2020-08-14 08:02 | NUR ---
PATIENT WAS IN AND OUT OF BED TO BEDSIDE COMMODE WITH ASSIST OF ONE STAFF TO KEEP IV AND SX TUBING SAFE. PATIENT APPEARS TO HAVE LOST CONTROL OF HER BOWELS WHEN STANDING UP. ALL URINE MIXED IN COMMODE WITH STOOL. NG YEALDED > 1100 ML OF GREEN MUCOUSY FLUID OVER SHIFT. THEN WHEN CONTAINER WAS CHANGED IN AM, OUTPUT WAS RED/BROWN. C/O HEADACHE AND LEFT HIP PAIN AT HS WHICH RESOLVED WITH HER MS CONTIN
[2020-08-14 12:09] LABS: BASOPHILS ABSOLUTE AUTO 0.01 K/mm3 (0.00-0.23); BASOPHILS PERCENT AUTO 0 % (0-2); EOSINOPHILS PERCENT AUTO 0 % (0-6); Hematocrit 42.7 % (33.0-51.0); Hemoglobin 13.7 g/dL (11.5-16.0); IMMATURE GRAN ABSOLUTE AUTO 0.02 K/mm3 (0.00-0.10); IMMATURE GRAN PERCENT AUTO 1 % (0-1); LYMPHOCYTES ABSOLUTE AUTO 0.81 K/mm3 (0.84-5.20); LYMPHOCYTES PERCENT AUTO 18 % (21-46); MONOCYTES ABSOLUTE AUTO 0.38 K/mm3 (0.16-1.47); MONOCYTES PERCENT AUTO 9 % (4-13); Mean Corpuscular HGB 27.8 pg (26.0-34.0); Mean Corpuscular HGB Conc 32.1 g/dL (31.5-36.5); Mean Corpuscular Volume 87 fL (80-100); Mean Platelet Volume 11.1 fL (9.1-12.4); NEUTROPHILS ABSOLUTE AUTO 3.21 K/mm3 (1.96-9.15); NEUTROPHILS PERCENT AUTO 72 % (41-73); Platelet Count 158 K/mm3 (150-400); RDW Coefficient Variation 18.6 % (11.7-14.2); RDW Standard Deviation 58.7 fL (35.1-46.3); Red Blood Cell Count 4.93 M/mm3 (3.80-5.20); White Blood Cell Count 4.43 K/mm3 (4.00-11.30)
--- NOTE | 2020-08-14 12:16 | NUR ---
NG TUBE REMOVAL THIS RN REMOVED PT'S NG TUBE AT 1215 WITH NO RESISTANCE. PT TOLERATED REMOVAL WELL. PT IS EATING CLEAR LIQUID DIET FOR LUNCH. NG TUBE INTACT ON REMOVAL.
--- NOTE | 2020-08-14 19:30 | NUR ---
SHIFT SUMMARY PT IS AO. PT MEDICATED FOR PAIN X2. PT NG TUBE DC'D THIS SHIFT BY THIS RN. PT HAS DECENT APPETITE ON CLEAR LIQUIDS. NO PROCEDURES DONE THIS SHIFT. PT CONTINUES TO HAVE LIQUID BMS. PT HAD VISITOR THIS JOHANNE. PT IS IN BED, CALL LIGHT IN REACH, BED IN LOW POSITON.
[2020-08-15 05:16] LABS: BASOPHILS ABSOLUTE AUTO 0.01 K/mm3 (0.00-0.23); BASOPHILS PERCENT AUTO 0 % (0-2); EOSINOPHILS ABSOLUTE AUTO 0.01 K/mm3 (0.00-0.68); EOSINOPHILS PERCENT AUTO 0 % (0-6); Hematocrit 37.1 % (33.0-51.0); Hemoglobin 12.7 g/dL (11.5-16.0); IMMATURE GRAN ABSOLUTE AUTO 0.02 K/mm3 (0.00-0.10); IMMATURE GRAN PERCENT AUTO 1 % (0-1); LYMPHOCYTES ABSOLUTE AUTO 1.13 K/mm3 (0.84-5.20); LYMPHOCYTES PERCENT AUTO 26 % (21-46); MONOCYTES PERCENT AUTO 12 % (4-13); Mean Corpuscular HGB 28.9 pg (26.0-34.0); Mean Corpuscular HGB Conc 34.2 g/dL (31.5-36.5); Mean Corpuscular Volume 84 fL (80-100); Mean Platelet Volume 11.1 fL (9.1-12.4); NEUTROPHILS ABSOLUTE AUTO 2.68 K/mm3 (1.96-9.15); NEUTROPHILS PERCENT AUTO 62 % (41-73); Platelet Count 146 K/mm3 (150-400); RDW Standard Deviation 55.5 fL (35.1-46.3); White Blood Cell Count 4.35 K/mm3 (4.00-11.30)
[2020-08-15 05:45] LABS: Alanine Aminotransfer (ALT/SGP 55 U/L (12-78); Albumin, Blood 2.4 g/dL (3.4-5.0); Albumin/Globulin Ratio 0.8 (0.8-1.8); Alk Phos 96 U/L (50-136); Anion Gap 7 mmol/L (6-16); Aspartate Aminotrans (AST/SGOT 68 U/L (12-37); Bilirubin, Total 0.4 mg/dL (0.1-1.0); Blood Urea Nitrogen 21 mg/dL (8-24); Bun/Creatinine Ratio 38.5 (12.0-20.0); CO2, Blood 39 mmol/L (21-32); Calcium, Blood 8.2 mg/dL (8.5-10.1); Chloride, Blood 85 mmol/L (98-108); Creatinine, Blood 0.55 mg/dL (0.40-1.00); Globulin, Blood 3.1 g/dL (2.2-4.0); Glomerular Filtration Rate >60 (60-); Glucose, Blood 121 mg/dL (70-99); Potassium, Blood 2.9 mmol/L (3.5-5.5); Sodium, Blood 131 mmol/L (136-145); Total Protein, Blood 5.5 g/dL (6.4-8.2)
--- NOTE | 2020-08-15 06:46 | NUR ---
SHIFT SUMMARY PATIENT ALERT AND ORIENTED. WAS MEDICATED PER EMAR FOR PAIN AND NAUSEA. NO COMPLAINTS OF SHORTNESS OF BREATH OR CHEST PAIN. NO ACUTE ISSUES NOTED OVERNIGHT. IV PATENT AND INFUSING. BED IN LOWEST POSITION WITH WHEELS LOCKED. CALL LIGHT WITHIN REACH. REPORT GIVEN TO ONCOMING RN.
--- NOTE | 2020-08-15 17:21 | NUR ---
Supportive visit this evening. Pt resting in bed and reports 7/10 pain in her left hip. Notified Bedside RAFAT Nava, RN will offer pain medication. Daughter Lisa at bedside. Offered therapeutic listening and reviewed plan of care. Pt and daughter expresses appreciation of care being provided and reports no concerns at this time. Spoke with Bedside RAFAT Nava prior to Pt visit. No concerns reported at this time. Palliative Care will remain available.
--- NOTE | 2020-08-15 17:27 | NUR ---
SHIFT SUMMARY PT IS AOX4 AND PLEASANT. PT MEDICATED FOR PAIN X3 THIS SHIFT. PT MEDICATED FOR N/V X2 THIS SHIFT. PT IS ONE PERSON ASSIST IN ROOM. PT APPETITE IS GOOD. PT EATS AROUND 80-90% OF CLEAR LIQUID MEALS. NO PROCEDURES DONE THIS SHIFT. PT'S DAUGHTER VISITED THIS JOHANNE. PT IS IN BED, CALL LIGHT IN REACH, BED IN LOW POSITION.
--- NOTE | 2020-08-15 19:25 | NUR ---
ASSUMED CARE RECEIVED REPORT FROM YUN Bruce RN. PT LYING IN BED, IN NO ACUTE DISTRESS. RESPS E/U, NO N/V NOTED AT THIS TIME. NO ACUTE NEEDS ASSESSED AT THIS TIME. CALL LIGHT, POSSESSIONS IN REACH, BED IN LOW POSITION.
--- NOTE | 2020-08-16 04:22 | NUR ---
PRODUCTION LINE TECHNICIAN SUMMARY PT ASLEEP, IN NO ACUTE DISTRESS. VOICED C/O "HEARTBURN" AND NAUSEA EARLIER IN SHIFT, FOR WHICH PT WAS MEDICATED PER EMAR, WITH LITTLE RELIEF; LARGE AMOUNT OF EMESIS RESULTED. PT MEDICATED WITH PRN ATIVAN, APPEARED TO EASE NAUSEA AND ALLOWED PT TO SLEEP. VS REVIEWED,WNL. BROUGHT PT ICE CHIPS TO SUCK ON AT A LATER TIME. NO OTHER ACUTE CHANGES IN CONDITION NOTED OVERNIGHT. NO ACUTE NEEDS ASSESSED AT THIS TIME. CALL LIGHT, POSSESSIONS IN REACH, BED IN LOW POSITION WITH ALARMS ON. WILL CONTINUE TO PROVIDE CARE NEEDED AND REPORT OFF TO ONCOMING RN.
[2020-08-16 05:27] LABS: BASOPHILS ABSOLUTE AUTO 0.01 K/mm3 (0.00-0.23); BASOPHILS PERCENT AUTO 0 % (0-2); EOSINOPHILS PERCENT AUTO 0 % (0-6); Hematocrit 41.7 % (33.0-51.0); Hemoglobin 13.9 g/dL (11.5-16.0); IMMATURE GRAN ABSOLUTE AUTO 0.01 K/mm3 (0.00-0.10); IMMATURE GRAN PERCENT AUTO 0 % (0-1); LYMPHOCYTES ABSOLUTE AUTO 1.14 K/mm3 (0.84-5.20); LYMPHOCYTES PERCENT AUTO 24 % (21-46); MONOCYTES ABSOLUTE AUTO 0.59 K/mm3 (0.16-1.47); MONOCYTES PERCENT AUTO 13 % (4-13); Mean Corpuscular HGB 27.9 pg (26.0-34.0); Mean Corpuscular HGB Conc 33.3 g/dL (31.5-36.5); Mean Corpuscular Volume 84 fL (80-100); Mean Platelet Volume 10.8 fL (9.1-12.4); NEUTROPHILS ABSOLUTE AUTO 2.96 K/mm3 (1.96-9.15); NEUTROPHILS PERCENT AUTO 63 % (41-73); Platelet Count 178 K/mm3 (150-400); RDW Coefficient Variation 18.1 % (11.7-14.2); RDW Standard Deviation 54.7 fL (35.1-46.3); Red Blood Cell Count 4.99 M/mm3 (3.80-5.20); White Blood Cell Count 4.71 K/mm3 (4.00-11.30)
[2020-08-16 06:12] LABS: Alanine Aminotransfer (ALT/SGP 54 U/L (12-78); Albumin, Blood 2.7 g/dL (3.4-5.0); Albumin/Globulin Ratio 0.8 (0.8-1.8); Alk Phos 110 U/L (50-136); Anion Gap 6 mmol/L (6-16); Aspartate Aminotrans (AST/SGOT 62 U/L (12-37); Bilirubin, Total 0.6 mg/dL (0.1-1.0); Blood Urea Nitrogen 28 mg/dL (8-24); Bun/Creatinine Ratio 38.1 (12.0-20.0); CO2, Blood 39 mmol/L (21-32); Calcium, Blood 8.8 mg/dL (8.5-10.1); Chloride, Blood 83 mmol/L (98-108); Creatinine, Blood 0.73 mg/dL (0.40-1.00); Globulin, Blood 3.4 g/dL (2.2-4.0); Glomerular Filtration Rate >60 (60-); Glucose, Blood 115 mg/dL (70-99); Magnesium, Blood 2.1 mg/dL (1.6-2.4); Phosphorus, Blood 4.2 mg/dL (2.5-4.9); Potassium, Blood 4.3 mmol/L (3.5-5.5); Sodium, Blood 128 mmol/L (136-145); Total Protein, Blood 6.1 g/dL (6.4-8.2)
--- NOTE | 2020-08-16 19:54 | NUR ---
SHIFT SUMMARY- PT ALERT AND ORIENTED. PT CALLS APPROPRIATELY. SOME NAUSEA NOTED THIS MORNING ZOFRAN INEFFECTIVE, PO ATIVAN HELPED HER NAUSEA COMPLETELY. PT WAS AWAKE AND FEELING A LITTLE BETTER THEN SHE SLEPT FOR A FEW HOURS. PT DAUGHTER CAME IN TO VISIT. PT WAS A LITTLE UPSET SHE SLEPT THROUGH HER VISIT. DAUGHTER CONVEYED THE PT SPOUSE HAS DEMENTIA AND CAN NOT COME IN TO THE HOSPITAL ON HIS OWN. SPOKE TO STRATEGIC MARKETING MANAGER. DAUGHTER SHOULD BE ABLE TO ACCOMPANY THE PT SPOUSE INTO THE HOSPITAL HE NEEDS SOMEONE WITH HIM. APPARENTLY PT SPOUSE IS CERTAIN THAT THE PT IS DYING AND HE WONT GET TO SEE HER AGAIN. PT HAD A BIT OF DISTRESS AT ALL OF THIS, BUT IT SEEMS TO HAVE RESOLVED WITH THE RESOLUTION OF HER BEING ABLE TO COME SEE HER. PT IN BED, BEDSIDE REPORT COMPLETED WITH NIGHT RN. NO S&S OF DISTRESS NOTED AT THE TIME OF REPORT. NEW IV RUNNING CLINIMIX AND LIPIDS, CALL LIGHT IN REACH.
[2020-08-17 05:25] LABS: BASOPHILS ABSOLUTE AUTO 0.01 K/mm3 (0.00-0.23); BASOPHILS PERCENT AUTO 0 % (0-2); EOSINOPHILS ABSOLUTE AUTO 0.01 K/mm3 (0.00-0.68); EOSINOPHILS PERCENT AUTO 0 % (0-6); Hematocrit 37.1 % (33.0-51.0); Hemoglobin 12.3 g/dL (11.5-16.0); IMMATURE GRAN ABSOLUTE AUTO 0.02 K/mm3 (0.00-0.10); IMMATURE GRAN PERCENT AUTO 1 % (0-1); LYMPHOCYTES ABSOLUTE AUTO 1.14 K/mm3 (0.84-5.20); LYMPHOCYTES PERCENT AUTO 33 % (21-46); MONOCYTES ABSOLUTE AUTO 0.44 K/mm3 (0.16-1.47); MONOCYTES PERCENT AUTO 13 % (4-13); Mean Corpuscular HGB Conc 33.2 g/dL (31.5-36.5); Mean Corpuscular Volume 85 fL (80-100); Mean Platelet Volume 10.9 fL (9.1-12.4); NEUTROPHILS ABSOLUTE AUTO 1.89 K/mm3 (1.96-9.15); NEUTROPHILS PERCENT AUTO 54 % (41-73); Platelet Count 170 K/mm3 (150-400); RDW Coefficient Variation 17.7 % (11.7-14.2); RDW Standard Deviation 54.8 fL (35.1-46.3); Red Blood Cell Count 4.39 M/mm3 (3.80-5.20); White Blood Cell Count 3.51 K/mm3 (4.00-11.30)
[2020-08-17 05:57] LABS: Alanine Aminotransfer (ALT/SGP 40 U/L (12-78); Albumin, Blood 2.4 g/dL (3.4-5.0); Albumin/Globulin Ratio 0.7 (0.8-1.8); Alk Phos 94 U/L (50-136); Anion Gap 4 mmol/L (6-16); Aspartate Aminotrans (AST/SGOT 45 U/L (12-37); Bilirubin, Total 0.5 mg/dL (0.1-1.0); Blood Urea Nitrogen 20 mg/dL (8-24); Bun/Creatinine Ratio 31.6 (12.0-20.0); CO2, Blood 36 mmol/L (21-32); Chloride, Blood 89 mmol/L (98-108); Creatinine, Blood 0.63 mg/dL (0.40-1.00); Globulin, Blood 3.3 g/dL (2.2-4.0); Glomerular Filtration Rate >60 (60-); Glucose, Blood 112 mg/dL (70-99); Phosphorus, Blood 3.4 mg/dL (2.5-4.9); Potassium, Blood 3.2 mmol/L (3.5-5.5); Sodium, Blood 129 mmol/L (136-145); Total Protein, Blood 5.7 g/dL (6.4-8.2)
--- NOTE | 2020-08-17 06:40 | NUR ---
SHIFT SUMMARY A0X4. VSS. PT REPORTS VERY MILD NAUSEA AT THE BEGINNING OF SHIFT. ATIVAN 0.5MG. PT REPORTS THE MEDICATION HELPED. SHE WAS ABLE TO SLEEP GOOD T/O SHIFT. PT ALSO REPORTS CHRONIC PAIN ALL OVER. MSCONTIN WAS GIVEN EVERY 4 HRS. PT HAD A COMFOTABLE NIGHT. VOIDING ADEQUATELY. USED BSC WITH MINIMAL ASSIST. USED CALL LIGHT APPROPRIATELY. PT DENIES PASSING FLATUS. BT PRESENT. PT ALSO DENIES VOMITING. TOLERATING PO INTAKE. CALL LIGHT WITHIN REACH. WILL PROVIDE REPORT TO ONCOMING NURSE.
[2020-08-17 12:40] LABS: BASOPHILS ABSOLUTE AUTO 0.01 K/mm3 (0.00-0.23); BASOPHILS PERCENT AUTO 0 % (0-2); EOSINOPHILS PERCENT AUTO 0 % (0-6); Hematocrit 38.6 % (33.0-51.0); IMMATURE GRAN ABSOLUTE AUTO 0.02 K/mm3 (0.00-0.10); IMMATURE GRAN PERCENT AUTO 0 % (0-1); LYMPHOCYTES ABSOLUTE AUTO 0.99 K/mm3 (0.84-5.20); LYMPHOCYTES PERCENT AUTO 19 % (21-46); MONOCYTES ABSOLUTE AUTO 0.66 K/mm3 (0.16-1.47); MONOCYTES PERCENT AUTO 13 % (4-13); Mean Corpuscular HGB 28.4 pg (26.0-34.0); Mean Corpuscular HGB Conc 33.7 g/dL (31.5-36.5); Mean Corpuscular Volume 84 fL (80-100); Mean Platelet Volume 10.3 fL (9.1-12.4); NEUTROPHILS ABSOLUTE AUTO 3.46 K/mm3 (1.96-9.15); NEUTROPHILS PERCENT AUTO 67 % (41-73); Platelet Count 185 K/mm3 (150-400); RDW Coefficient Variation 17.6 % (11.7-14.2); RDW Standard Deviation 54.4 fL (35.1-46.3); Red Blood Cell Count 4.58 M/mm3 (3.80-5.20); White Blood Cell Count 5.14 K/mm3 (4.00-11.30)
--- NOTE | 2020-08-17 17:04 | NUR ---
SHIFT SUMMARY PT AOX3; CONFUSED AT TIMES. PT HAD A BLOODY STOOL THIS AM; DR NOTIFIED. PT WILL HAVE A GASTROENTEROLGY CONSULT THIS WEDNESDAY AND RN NEEDS TO CALL; ANOTHER CONSULT FROM DR COPPOLA- LEFT MESSAGED THIS AFTERNOON. PT MEPELEX CHANGED FOR PROTECTION TO REDDENED AREA. PT DTR AT BEDSIDE AND IV NUTRITION RUNNING. PT STILL VERY WEAK AND LETHARGIC. MEDICATED FOR PAIN AND HEADACHE. BED IS IN THE LOWEST POSITION AND CALL LIGHT WITHIN REACH
--- NOTE | 2020-08-17 19:29 | NUR ---
AWAKE, SOMEWHAT CONFUSED WITH VERBAL RESPONSE TO QUESTIONS. AM RN VOICED HAD GIVEN ATIVAN AND MAY BE THE REASON. IV CLIMIX INFUSING AT 45 ML/HR AND LIPIDS INFUSING WELL. CALL LIGHT IN REACH. BED ALARM ON. INSTRUCTED TO USE CALL LIGHT
--- NOTE | 2020-08-18 04:08 | NUR ---
ENGINEERING DESIGN MANAGER SUMMARY PT SLEPT COMFORTABLY FOR DURATION OF SHIFT, WAKING UP ONLY TO VOID. AOX3-4, 1 PERSON MINIMUM ASSIST TO BSC. PT HAD NO COMPLAINTS DURING THE NIGHT, VITAL SIGNS STABLE. SHE IS AWAITING GASTROENTEROLOGY CONSULT, A CALL NEEDS TO BE PUT IN FIRST THING WEDNESDAY AM. WILL CONTINUE TO MONITOR.
[2020-08-18 04:56] LABS: BASOPHILS ABSOLUTE AUTO 0.02 K/mm3 (0.00-0.23); BASOPHILS PERCENT AUTO 0 % (0-2); EOSINOPHILS PERCENT AUTO 0 % (0-6); Hematocrit 34.8 % (33.0-51.0); Hemoglobin 11.6 g/dL (11.5-16.0); IMMATURE GRAN ABSOLUTE AUTO 0.02 K/mm3 (0.00-0.10); IMMATURE GRAN PERCENT AUTO 0 % (0-1); LYMPHOCYTES ABSOLUTE AUTO 0.75 K/mm3 (0.84-5.20); LYMPHOCYTES PERCENT AUTO 11 % (21-46); MONOCYTES ABSOLUTE AUTO 0.69 K/mm3 (0.16-1.47); MONOCYTES PERCENT AUTO 10 % (4-13); Mean Corpuscular HGB 28.2 pg (26.0-34.0); Mean Corpuscular HGB Conc 33.3 g/dL (31.5-36.5); Mean Corpuscular Volume 85 fL (80-100); Mean Platelet Volume 10.4 fL (9.1-12.4); NEUTROPHILS ABSOLUTE AUTO 5.69 K/mm3 (1.96-9.15); NEUTROPHILS PERCENT AUTO 79 % (41-73); Platelet Count 157 K/mm3 (150-400); RDW Coefficient Variation 17.8 % (11.7-14.2); RDW Standard Deviation 54.7 fL (35.1-46.3); Red Blood Cell Count 4.11 M/mm3 (3.80-5.20); White Blood Cell Count 7.17 K/mm3 (4.00-11.30)
[2020-08-18 05:17] LABS: Albumin, Blood 2.2 g/dL (3.4-5.0); Anion Gap 5 mmol/L (6-16); Blood Urea Nitrogen 24 mg/dL (8-24); Bun/Creatinine Ratio 45.7 (12.0-20.0); CO2, Blood 34 mmol/L (21-32); Calcium, Blood 7.6 mg/dL (8.5-10.1); Chloride, Blood 90 mmol/L (98-108); Creatinine, Blood 0.53 mg/dL (0.40-1.00); Glomerular Filtration Rate >60 (60-); Glucose, Blood 117 mg/dL (70-99); Magnesium, Blood 1.9 mg/dL (1.6-2.4); Potassium, Blood 3.1 mmol/L (3.5-5.5); Sodium, Blood 129 mmol/L (136-145)
--- NOTE | 2020-08-18 10:35 | NUR ---
Pt alert but very distruaght and symptomntic. She complains of a headache today along with continued loose bloody stools and nausea. She state her breathing is still a little tight but not as bad as yesterday. She is tearful and worried about her prognosis. She worried about her family. Pt very tearful and fatigued. Awaiting GI consult in AM. Will continue to follow for symptom managment and support. She want to make sure doctor Ronnie is notified about her care.
--- NOTE | 2020-08-18 17:08 | NUR ---
SHIFT SUMMARY PT AOX3; CONFUSED AT TIMES. PT STILL HAVING SOME LOOSE STOOLS. HOLD OFF ON THE BOWEL CARE TODAY. PT DTR HAD DISCUSSION WITH THE DR TODAY AT BEDSIDE. DENIES SOB OR NO APPARENT DISTRESS. BED IS IN THE LOWEST POSITION AND CALL LIGHT WITHIN REACH
--- NOTE | 2020-08-18 19:18 | NUR ---
I AGREE WITH HIRED HAND TARA PLASCENCIA DOCUMENTATION 08/17- EVARISTO JUAN RN
--- NOTE | 2020-08-18 21:21 | NUR ---
PT REQUESTS PRN PAIN MEDICATION PT REPORTS TO PAIN, MEDS ADMINISTERED PER EMAR. RN CARDIOVASCULAR PROVIDER WAS CALLED TO VERIFY HOLDING DOSE OF ELOQUIS D/T RECENT HX OF BLOOD IN STOOL. SCDS INITIATED ON BILATERAL CALVES. WILL CONTINUE TO MONITOR.
--- NOTE | 2020-08-19 02:56 | NUR ---
SENIOR RISK MANAGER SUMMARY. PT ALERT AND ORIENTED X4. COMPLAINTS OF PAIN, ANXIETY, AND INSOMNIA TONIGHT. MEDICATED PER EMAR. CONTINUES TO HAVE ABDOMINAL PAIN AND LIQUID STOOL, NO IKER BLOOD OR BLACK TARRY STOOLS NOTED THROUGHOUT SHIFT. NO NOTABLE DISTRESS AND VITAL SIGNS STABLE. WILL CONTINUE TO MONITOR.
[2020-08-19 04:52] LABS: BASOPHILS ABSOLUTE AUTO 0.01 K/mm3 (0.00-0.23); BASOPHILS PERCENT AUTO 0 % (0-2); EOSINOPHILS ABSOLUTE AUTO 0.01 K/mm3 (0.00-0.68); EOSINOPHILS PERCENT AUTO 0 % (0-6); Hematocrit 31.5 % (33.0-51.0); Hemoglobin 10.8 g/dL (11.5-16.0); IMMATURE GRAN ABSOLUTE AUTO 0.01 K/mm3 (0.00-0.10); IMMATURE GRAN PERCENT AUTO 0 % (0-1); LYMPHOCYTES ABSOLUTE AUTO 0.91 K/mm3 (0.84-5.20); LYMPHOCYTES PERCENT AUTO 24 % (21-46); MONOCYTES ABSOLUTE AUTO 0.39 K/mm3 (0.16-1.47); MONOCYTES PERCENT AUTO 10 % (4-13); Mean Corpuscular HGB Conc 34.3 g/dL (31.5-36.5); Mean Corpuscular Volume 85 fL (80-100); Mean Platelet Volume 10.8 fL (9.1-12.4); NEUTROPHILS ABSOLUTE AUTO 2.48 K/mm3 (1.96-9.15); NEUTROPHILS PERCENT AUTO 65 % (41-73); Platelet Count 128 K/mm3 (150-400); RDW Coefficient Variation 17.6 % (11.7-14.2); RDW Standard Deviation 54.6 fL (35.1-46.3); Red Blood Cell Count 3.72 M/mm3 (3.80-5.20); White Blood Cell Count 3.81 K/mm3 (4.00-11.30)
[2020-08-19 05:12] LABS: Alanine Aminotransfer (ALT/SGP 21 U/L (12-78); Albumin/Globulin Ratio 0.7 (0.8-1.8); Alk Phos 71 U/L (50-136); Anion Gap 4 mmol/L (6-16); Aspartate Aminotrans (AST/SGOT 26 U/L (12-37); Bilirubin, Total 0.3 mg/dL (0.1-1.0); Blood Urea Nitrogen 12 mg/dL (8-24); Bun/Creatinine Ratio 24.4 (12.0-20.0); CO2, Blood 33 mmol/L (21-32); Calcium, Blood 7.8 mg/dL (8.5-10.1); Chloride, Blood 92 mmol/L (98-108); Creatinine, Blood 0.49 mg/dL (0.40-1.00); Glomerular Filtration Rate >60 (60-); Glucose, Blood 113 mg/dL (70-99); Magnesium, Blood 1.9 mg/dL (1.6-2.4); Phosphorus, Blood 2.8 mg/dL (2.5-4.9); Potassium, Blood 2.9 mmol/L (3.5-5.5); Sodium, Blood 129 mmol/L (136-145)
--- NOTE | 2020-08-19 09:29 | NUR ---
pt up in chair states she feels a little better today. She struggles with sleep awaiting GI consult. Review of prn medications.
--- NOTE | 2020-08-19 14:05 | NUR ---
Met Pt. inn bed resting , she reports to be doing much better, encouraged pt. and offered prayers and gave spiritual support
--- NOTE | 2020-08-19 18:48 | NUR ---
SHIFT SUMMARY. A&OX4, ONE ASSIST WITH WALKER TO BATHROOM. PT DENEIS SOB, LUNGS CLEAR, ON RA. PT C/O MILD ABD TENDERNESS SHE REPORTED GAS LIKE PAIN THAT IMPROVED WITH AMBULATING IN ROOM. PT REPORTED PAIN TO L HIP THAT IS CHRONIC, PAIN MANAGED WELL WITH CURRENT ORDERS. BLOOD POTASSIUM REPLACED VIA IV. IV NO LONGER PATENT AT THIS TIME, NOC RN AWARE. DAUGHTER IN TO VISIT THIS AFTERNOON AND ASSISTED PT WITH SOME ADLS. PT TOLERATED PUREE DIET FOR DINNER WELL . NO OTHER CHANGES OR CONCERNS.
--- NOTE | 2020-08-19 21:19 | NUR ---
I AGREE WITH DOCUMENTATOIN OF TARA PLASCENCIA MILITARY ANALYST NOTATIONS. EVARISTO JUAN RN
--- NOTE | 2020-08-19 21:47 | NUR ---
PATIENT UP TO BATHROOM WITH STANDBY ASSIST. BACK INTO BED WITH SCDS APPLIED AND WARM BLANKET. PT STATES SHE IS GOING TO TRY TO GET SOME GOOD SLEEP TONIGHT. IV FLUIDS HOOKED BACK UP. NO COMPLAINTS AT THIS TIME. WILL CONTINUE TO MONITOR.
--- NOTE | 2020-08-20 03:20 | NUR ---
RN POSTPARTUM SUMMARY PATIENT ALERT AND ORIENTED X 4. VSS. A NEW IV WAS PLACED BY RAFAT LOERA. INFUSING CLINIMIX AND LIPIDS PER JUN. MEDICATED FOR CHRONIC PAIN SEE JUN. PT NOW AMBULATING TO BATHROOM ON HER OWN WITH WALKER AND STANDBY ASSIST. NO COMPLAINTS OF ANXIETY TONIGHT AND SHE WAS ABLE TO GET SOME REST. TOLERATING DIET ADVANCEMENT TO PUREED FOODS WELL. NO ACUTE COMPLAINTS AND NONDISTRESSED. WILL CONTINUE TO MONITOR.
[2020-08-20 05:17] LABS: BASOPHILS ABSOLUTE AUTO 0.02 K/mm3 (0.00-0.23); BASOPHILS PERCENT AUTO 1 % (0-2); EOSINOPHILS PERCENT AUTO 0 % (0-6); Hematocrit 31.5 % (33.0-51.0); Hemoglobin 10.5 g/dL (11.5-16.0); IMMATURE GRAN ABSOLUTE AUTO 0.02 K/mm3 (0.00-0.10); IMMATURE GRAN PERCENT AUTO 1 % (0-1); LYMPHOCYTES ABSOLUTE AUTO 0.99 K/mm3 (0.84-5.20); LYMPHOCYTES PERCENT AUTO 28 % (21-46); MONOCYTES ABSOLUTE AUTO 0.45 K/mm3 (0.16-1.47); MONOCYTES PERCENT AUTO 13 % (4-13); Mean Corpuscular HGB 28.7 pg (26.0-34.0); Mean Corpuscular HGB Conc 33.3 g/dL (31.5-36.5); Mean Corpuscular Volume 86 fL (80-100); Mean Platelet Volume 10.7 fL (9.1-12.4); NEUTROPHILS ABSOLUTE AUTO 2.09 K/mm3 (1.96-9.15); NEUTROPHILS PERCENT AUTO 59 % (41-73); Platelet Count 140 K/mm3 (150-400); RDW Coefficient Variation 18.1 % (11.7-14.2); RDW Standard Deviation 56.5 fL (35.1-46.3); Red Blood Cell Count 3.66 M/mm3 (3.80-5.20); White Blood Cell Count 3.57 K/mm3 (4.00-11.30)
--- NOTE | 2020-08-20 05:52 | NUR ---
I AGREE WITH DOCUMENTATOIN OF TARA PLASCENCIA STUDENT NURSE. EVARISTO JUAN RN
[2020-08-20 05:55] LABS: Alanine Aminotransfer (ALT/SGP 20 U/L (12-78); Albumin, Blood 2.1 g/dL (3.4-5.0); Albumin/Globulin Ratio 0.7 (0.8-1.8); Alk Phos 80 U/L (50-136); Anion Gap 3 mmol/L (6-16); Aspartate Aminotrans (AST/SGOT 20 U/L (12-37); Bilirubin, Total 0.5 mg/dL (0.1-1.0); Blood Urea Nitrogen 11 mg/dL (8-24); CO2, Blood 33 mmol/L (21-32); Calcium, Blood 7.7 mg/dL (8.5-10.1); Chloride, Blood 97 mmol/L (98-108); Creatinine, Blood 0.58 mg/dL (0.40-1.00); Globulin, Blood 2.9 g/dL (2.2-4.0); Glomerular Filtration Rate >60 (60-); Glucose, Blood 90 mg/dL (70-99); Magnesium, Blood 1.8 mg/dL (1.6-2.4); Phosphorus, Blood 3.4 mg/dL (2.5-4.9); Potassium, Blood 3.7 mmol/L (3.5-5.5); Sodium, Blood 133 mmol/L (136-145)
--- NOTE | 2020-08-20 13:22 | NUR ---
Met pt. in bed restring she reports to be doing well and may be ghoing home today or smith. Encouraged pt. and offered prayers and spiritual support.
--- NOTE | 2020-08-20 17:56 | NUR ---
SHIFT SUMMARY PT RESTING QUIETLY AT START OF SHIFT. LATER REQUESTED BSC PLACED NEXT TO BED FOR EASY ACCESS D/T LINES AND PUMP. PT REPORTING PASSING ALOT OF GAS AND DOES NOT WANT TO GO INTO [facility] FREQUENTLY FOR FALSE ALARMS. PT MEDICATED FOR C/O PAIN TO L HIP; CHRONIC. MEDS TAKEN WHOLE IN APPLESAUCE. PT TOLERATING PUREED DIET FOR THE MOST PART, LONG SHE DOESN'T OVER EAT. REQUESTED DIETARY TO [facility]; EAVRISTO RAINEY PROVIDED PT WITH NEEDED INFORMATION. PT VERY GRATEFUL. DR RAMOSTRATE IN TO SEE PT, DISCUSSED PLAN OF CARE AND DISCHARGE PLANS. PT TO GO HOME TOMORROW AFTER LUNCH. PT WITH MULTIPLE FAMILY TO ASSIST WITH CARE AT HOME WELL H/H. CALL LT IN REACH. ABLE TO MAKE NEEDS KNOWN
--- NOTE | 2020-08-21 04:06 | NUR ---
SHIFT SUMMARY A/OX4, PLEASANT AND COOPERATIVE WITH CARE. MEDICATED FOR PAIN PER EMAR X1. PT APPEARED TO SLEEP T/O NIGHT. MEDICATED FOR NAUSEA X1. ABD TENDER TO THE TOUCH, BS HYPERACTIVE. CONTINUES TO PASS FLATUS. VSS, NO ACUTE CHANGES AT THIS TIME. BED IN LOWEST POSITION WITH CALL LIGHT IN REACH. WILL CONTINUE TO MONITOR AND REPORT TO ONCOMING RN.
[2020-08-21 04:26] LABS: BASOPHILS ABSOLUTE AUTO 0.01 K/mm3 (0.00-0.23); BASOPHILS PERCENT AUTO 0 % (0-2); EOSINOPHILS PERCENT AUTO 0 % (0-6); Hematocrit 30.7 % (33.0-51.0); Hemoglobin 10.7 g/dL (11.5-16.0); IMMATURE GRAN ABSOLUTE AUTO 0.03 K/mm3 (0.00-0.10); IMMATURE GRAN PERCENT AUTO 1 % (0-1); LYMPHOCYTES ABSOLUTE AUTO 0.94 K/mm3 (0.84-5.20); LYMPHOCYTES PERCENT AUTO 16 % (21-46); MONOCYTES ABSOLUTE AUTO 0.56 K/mm3 (0.16-1.47); MONOCYTES PERCENT AUTO 10 % (4-13); Mean Corpuscular HGB 29.8 pg (26.0-34.0); Mean Corpuscular HGB Conc 34.9 g/dL (31.5-36.5); Mean Corpuscular Volume 86 fL (80-100); Mean Platelet Volume 10.2 fL (9.1-12.4); NEUTROPHILS ABSOLUTE AUTO 4.32 K/mm3 (1.96-9.15); NEUTROPHILS PERCENT AUTO 74 % (41-73); Platelet Count 160 K/mm3 (150-400); RDW Coefficient Variation 18.3 % (11.7-14.2); RDW Standard Deviation 57.1 fL (35.1-46.3); Red Blood Cell Count 3.59 M/mm3 (3.80-5.20); White Blood Cell Count 5.86 K/mm3 (4.00-11.30)
[2020-08-21 04:49] LABS: Alanine Aminotransfer (ALT/SGP 22 U/L (12-78); Albumin, Blood 1.9 g/dL (3.4-5.0); Albumin/Globulin Ratio 0.6 (0.8-1.8); Alk Phos 84 U/L (50-136); Anion Gap 4 mmol/L (6-16); Aspartate Aminotrans (AST/SGOT 24 U/L (12-37); Bilirubin, Total 0.3 mg/dL (0.1-1.0); Blood Urea Nitrogen 16 mg/dL (8-24); Bun/Creatinine Ratio 30.2 (12.0-20.0); CO2, Blood 31 mmol/L (21-32); Calcium, Blood 7.5 mg/dL (8.5-10.1); Chloride, Blood 99 mmol/L (98-108); Creatinine, Blood 0.53 mg/dL (0.40-1.00); Globulin, Blood 3.2 g/dL (2.2-4.0); Glomerular Filtration Rate >60 (60-); Glucose, Blood 112 mg/dL (70-99); Magnesium, Blood 1.8 mg/dL (1.6-2.4); Potassium, Blood 4.1 mmol/L (3.5-5.5); Sodium, Blood 134 mmol/L (136-145); Total Protein, Blood 5.1 g/dL (6.4-8.2)
[2020-08-21] MEDS ORDERED: [UNRECOGNIZED DRUG - OTHER] PO (09:35)
[2020-08-21] MEDS ORDERED: SORBITOL PO (09:35)
[2020-08-21] MEDS ORDERED: MAALOX PLUS PO (09:36)
[2020-08-21] MEDS ORDERED: BISA10S PR (09:36)
[2020-08-21] MEDS ORDERED: FAMO20 PO (09:37)
[2020-08-21] MEDS ORDERED: [UNRECOGNIZED DRUG - OTHER] PO (09:37)
[2020-08-21] MEDS ORDERED: FLUC200 PO (09:38)
[2020-08-21] MEDS ORDERED: MELATONIN5 M1 PO (09:38)
[2020-08-21] MEDS ORDERED: METO5A PO (09:39)
--- NOTE | 2020-08-21 12:24 | NUR ---
DISCHARGE SUMMARY PT DISCHARGED TO HOME. PT LEFT ROOM VIA WHEELCHAIR WITH QA TEST LEAD AND RN ESCORT JUST PRIOR TO THIS NOTE. IV DC'D AND BELONGINGS RETURNED. ALL DISCHARGE INSTRUCTIONS DISCUSSED, ALL QUESTIONS ANSWERED. PT EDUCATED ON MEDICATIONS, TO FOLLOW UP WITH PCP AND GI DOCTOR, PT AGREES.
== END 2020-08-21 12:30 | disposition home health service (06) | DRG 388 ==
LOC: ER 23:19 → MEDS 08-08 03:57
PROVIDERS: Emergency Medicine; Family Medicine; Internal Medicine; ADMIT Family Medicine
PROC: 0D9670Z Drainage of Stomach with Drainage Device, Via Natural or Artificial Opening (ICD-10-PCS; principal; 2020-08-12)
DX: K56.600 Partial intestinal obstruction, unspecified as to cause (principal); E43 Unspecified severe protein-calorie malnutrition; B37.49 Other urogenital candidiasis; C79.51 Secondary malignant neoplasm of bone; E87.1 Hypo-osmolality and hyponatremia; C82.90 Follicular lymphoma, unspecified, unspecified site; Z68.1 Body mass index [BMI] 19.9 or less, adult; E83.42 Hypomagnesemia; E87.6 Hypokalemia; E83.39 Other disorders of phosphorus metabolism; F41.9 Anxiety disorder, unspecified; C54.1 Malignant neoplasm of endometrium; N30.91 Cystitis, unspecified with hematuria; R12 Heartburn; K59.00 Constipation, unspecified; Z86.718 Personal history of other venous thrombosis and embolism; Z79.01 Long term (current) use of anticoagulants; Z92.21 Personal history of antineoplastic chemotherapy; Z92.3 Personal history of irradiation
CPT/HCPCS: 36415; 74176; 74250; 76770; 80053; 80069; 81001; 83690; 83735; 83993; 84100; 84478; 85025; 85027; 86140; 87086; 93005; 93010; 96365; 96375; 96376; 97110; 97110-CQ; 97116; 97161; 97165; 97530; 97535; 99285-25; A9270; C9113; G0378; J0696; J2405; J2765; J3010; J3420; J3480; J7030; J7040; J7060

== ENCOUNTER 2020-09-16 00:23 | Day surgery (SDC) | payer MEDICARE, OTHER ==
[~2020-09-16 00:23] MED LIST changes: +BISA10S PR; +DOC250 PO; +ELIQUIS2.5 MG PO; +FAMO20 PO; +FLUC200 PO; +MAALOX PLUS PO; +MELATONIN5 M1 PO; +METO5A PO; +NORTRIPTYLINE H PO; +PSEUDOEPHEDRINE30 M4 PO; +SORBITOL PO; +XANAX0.25 MG PO; +[UNRECOGNIZED DRUG - OTHER] PO; +[UNRECOGNIZED DRUG - OTHER] PO
== END 2020-09-16 22:56 | disposition home or self-care (01) ==
LOC: WOUND 00:23
DX: N30.40 Irradiation cystitis without hematuria (principal); L89.152 Pressure ulcer of sacral region, stage 2; J45.909 Unspecified asthma, uncomplicated; Z85.89 Personal history of malignant neoplasm of other organs and systems; Z87.820 Personal history of traumatic brain injury; M19.90 Unspecified osteoarthritis, unspecified site
CPT/HCPCS: A9270; G0463